=== PATIENT | female | born 1985 | race Caucasian/White ===

== ENCOUNTER 2019-03-28 14:58 | Emergency (ER) | payer OTHER ==
[~2019-03-28] VITALS: Ht 160 cm; Wt 66.7 kg
[2019-03-28] MEDS ORDERED: ADDE20CA3 PO (15:07)
[2019-03-28] MEDS ORDERED: ADDERALL IR (15:07)
[2019-03-28] MEDS ORDERED: bcp (15:07)
[2019-03-28] MEDS ORDERED: ONDANSETRON 4MG/2ML VIAL (J2405) IV ONE (15:30)
[2019-03-28] MEDS ORDERED: GI COCKTAIL 50ML BTL(HYOSCYAMINE/MAALOX/LIDOCAINE VISCOUS)(1:3:1) PO ONE (15:30)
[2019-03-28] MEDS ORDERED: NS 1,000 ML IV ONE (15:30)
[2019-03-28 16:23] LABS: BASO % 1.1 % (0.0-1.0); EOS % 0.4 % (0.0-3.0); HEMATOCRIT 43.4 % (36.0-47.0); HEMOGLOBIN 15.1 g/dl (12.0-15.5); LYMPH # 1.3 10^3/uL (1.5-4.5); LYMPH % 47.3 % (24.0-44.0); MEAN CORPUSCULAR HEMOGLOBIN 34.2 pg (27.0-33.0); MEAN CORPUSCULAR HGB CONC 34.8 g/dl (32.0-36.5); MEAN CORPUSCULAR VOLUME 98.2 fl (80.0-96.0); MONO # 0.4 10^3/uL (0.0-0.8); MONO % 14.8 % (0.0-5.0); NEUTROPHILS % 36.4 % (36.0-66.0); PLATELET COUNT, AUTOMATED 169 10^3/uL (150-450); RED BLOOD COUNT 4.42 10^6/uL (4.00-5.40); WHITE BLOOD COUNT 2.6 10^3/uL (4.0-10.0)
[2019-03-28 16:34] LABS: INR 0.91; PROTHROMBIN TIME 12.3 SECONDS (12.1-14.4)
[2019-03-28 16:35] LABS: PARTIAL THROMBOPLASTIN TIME 26.3 SECONDS (25.4-37.6)
[2019-03-28] MEDS ORDERED: MORPHINE 4 MG/ML 1ML VIAL/SYRINGE (J2270) IV ONE (16:45)
[2019-03-28 17:05] LABS: ALBUMIN 4.7 GM/DL (3.2-5.2); ALT/SGPT 76 U/L (12-78); BILIRUBIN,DIRECT 0.3 MG/DL (0.0-0.2); BILIRUBIN,TOTAL 0.6 MG/DL (0.2-1.0); BLOOD UREA NITROGEN 7 MG/DL (7-18); CALCIUM LEVEL 9.3 MG/DL (8.5-10.1); CARBON DIOXIDE LEVEL 30 MEQ/L (21-32); CHLORIDE LEVEL 98 MEQ/L (98-107); CREATININE FOR GFR 0.84 MG/DL (0.55-1.30); ETHYL ALCOHOL (ETHANOL) 0.452 % (0.000-0.010); GLOMERULAR FILTRATION RATE > 60.0 (>60); GLUCOSE, FASTING 83 MG/DL (70-100); LIPASE 151 U/L (73-393); POTASSIUM SERUM 4.2 MEQ/L (3.5-5.1); SODIUM LEVEL 139 MEQ/L (136-145); TOTAL PROTEIN 9.3 GM/DL (6.4-8.2)
[2019-03-28] MEDS ORDERED: SUCR1SS PO (17:19)
[2019-03-28] MEDS ORDERED: OXAZ15CA4 PO (17:54)
[2019-03-28] MEDS ORDERED: ONDA4TAB6 PO (17:54)
[2019-03-28] MEDS ORDERED: OXAZEPAM 15 MG CAP PO ONE (18:00)
[2019-03-28 18:08] VITALS: BP 141/104
--- NOTE | 2019-03-29 08:40 | REP ---
RIGHT UPPER QUADRANT ULTRASOUND: Real-time sonographic evaluation of the right upper quadrant performed. Gallbladder demonstrates no evidence of intraluminal sludge or calculi, wall thickening, or pericholecystic fluid. There is no intrahepatic or extrahepatic biliary dilatation, common bile duct measuring 4 mm. Liver demonstrates heterogeneous increased echotexture compatible with diffuse fibrofatty infiltration. No gross mass is seen in the liver or pancreas. Pancreas is not optimally seen due to overlying bowel gas. Right kidney demonstrates no hydronephrosis with normal size 9.1 cm in length. No ascites is seen. IMPRESSION: No gallstones, gallbladder wall thickening, free fluid or biliary dilatation. There appears to be diffuse fibrofatty infiltration of the liver. Electronically Signed by Lb Garcia MD 03/29/2019 04:16 P
== END 2019-03-28 18:10 | disposition home or self-care (01) ==
LOC: M ED 14:58
DX: K29.20 Alcoholic gastritis without bleeding (principal); F10.239 Alcohol dependence with withdrawal, unspecified; F90.9 Attention-deficit hyperactivity disorder, unspecified type; K87 Disorders of gallbladder, biliary tract and pancreas in diseases classified elsewhere; Z79.899 Other long term (current) drug therapy; Z88.1 Allergy status to other antibiotic agents; Z88.2 Allergy status to sulfonamides
CPT/HCPCS: 76705; 80048; 80076; 81001; 83690; 84702; 85025; 85610; 85730; 96361; 96374; 96375; 99284; G0480; J2270; J2405

== ENCOUNTER → 2019-10-30 | Outpatient (REF) | payer OTHER ==
[~2019-10-30] MED LIST: ADDE20CA3 PO; ADDERALL IR; ONDA4TAB6 PO; OXAZ15CA4 PO; SUCR1SS PO; bcp
[2019-10-30 20:22] LABS: CHLAMYDIA DNA AMPLIFICATION NEGATIVE (NEGATIVE); GC DNA AMPLIFICATION NEGATIVE (NEGATIVE)
== END ==
LOC: M LAB REF 18:04
PROVIDERS: ATTEND Physician Assistant
DX: R30.0 Dysuria (principal)

== ENCOUNTER 2020-05-20 14:36 | Emergency (ER) | payer OTHER, SELFPAY ==
[2020-05-20] MEDS ORDERED: OXAZEPAM 15 MG CAP ONE (15:00)
[2020-05-20] MEDS ORDERED: OXAZEPAM 15 MG CAP As Ordered ONE (15:04)
[2020-05-20] MEDS ORDERED: ISOVUE-370 76% 100ML VIAL As Ordered ONE (16:44)
[2020-07-25 15:25] LABS: BASO % 0.4 % (0.0-1.0); EOS # 0.1 10^3/uL (0.0-0.5); EOS % 2.8 % (0.0-3.0); HEMATOCRIT 41.6 % (36.0-47.0); HEMOGLOBIN 14.4 g/dl (12.0-15.5); LYMPH # 0.4 10^3/uL (1.5-5.0); LYMPH % 17.5 % (24.0-44.0); MEAN CORPUSCULAR HEMOGLOBIN 34.7 pg (27.0-33.0); MEAN CORPUSCULAR HGB CONC 34.6 g/dl (32.0-36.5); MEAN CORPUSCULAR VOLUME 100.2 fl (80.0-96.0); MONO # 0.3 10^3/uL (0.0-0.8); MONO % 11.4 % (0.0-5.0); NEUTROPHILS # 1.7 10^3/uL (1.5-8.5); NEUTROPHILS % 67.5 % (36.0-66.0); RED BLOOD COUNT 4.15 10^6/uL (4.00-5.40); WHITE BLOOD COUNT 2.5 10^3/uL (4.0-10.0)
[2020-07-25 15:26] LABS: PLATELET COUNT, AUTOMATED 70 10^3/uL (150-450)
[2020-08-08 12:14] LABS: ALBUMIN 4.4 GM/DL (3.2-5.2); ALT/SGPT 55 U/L (12-78); BILIRUBIN,TOTAL 1.8 MG/DL (0.2-1.0); BLOOD UREA NITROGEN 3 MG/DL (7-18); CALCIUM LEVEL 9.8 MG/DL (8.5-10.1); CARBON DIOXIDE LEVEL 28 MEQ/L (21-32); CHLORIDE LEVEL 93 MEQ/L (98-107); CREATININE FOR GFR 0.77 MG/DL (0.55-1.30); ETHYL ALCOHOL (ETHANOL) 0.005 % (0.000-0.010); GLOMERULAR FILTRATION RATE > 60.0 (>60); GLUCOSE, FASTING 96 MG/DL (70-100); POTASSIUM SERUM 3.9 MEQ/L (3.5-5.1); SODIUM LEVEL 130 MEQ/L (136-145); TOTAL PROTEIN 9.2 GM/DL (6.4-8.2)
[2020-08-08 12:23] LABS: HCG, SERUM QUALITATIVE NEGATIVE (NEGATIVE)
== END 2020-05-20 18:23 | disposition home or self-care (01) ==
LOC: M ED 14:36
DX: S30.1XXA Contusion of abdominal wall, initial encounter (principal); V18.2XXA Unspecified pedal cyclist injured in noncollision transport accident in nontraffic accident, initial encounter; F10.129 Alcohol abuse with intoxication, unspecified; K76.0 Fatty (change of) liver, not elsewhere classified; Z88.1 Allergy status to other antibiotic agents; Z88.2 Allergy status to sulfonamides; Z79.899 Other long term (current) drug therapy; Z79.52 Long term (current) use of systemic steroids
CPT/HCPCS: 74177; 80053; 84703; 85025; 85049; 85055; 96360; 99284; G0480; Q9967

== ENCOUNTER 2020-08-06 05:21 | Inpatient (IN) | payer OTHER ==
[~2020-08-06] VITALS: Ht 160 cm; Wt 65.8 kg
[2020-08-06] MEDS ORDERED: CENT1TAB PO (05:42)
[2020-08-06] MEDS ORDERED: MILK140C PO (05:42)
[2020-08-06] MEDS ORDERED: FISH1000 PO (05:42)
[2020-08-06] MEDS ORDERED: PROP40TA62 PO (05:42)
[2020-08-06] MEDS ORDERED: VITATAB73 PO (05:42)
[2020-08-06] MEDS ORDERED: IRON65TA2 PO (05:42)
[2020-08-06] MEDS ORDERED: THIAMINE 100 MG TAB PO SCH (05:56)
[2020-08-06] MEDS ORDERED: LORazepam 2 MG TAB PO PRN (06:00)
[2020-08-06] MEDS ORDERED: NS 1,000 ML IV ONE (06:00)
[2020-08-06 06:06] LABS: HEMATOCRIT 37.3 % (36.0-47.0); HEMOGLOBIN 13.1 g/dl (12.0-15.5); MEAN CORPUSCULAR HEMOGLOBIN 33.7 pg (27.0-33.0); MEAN CORPUSCULAR HGB CONC 35.1 g/dl (32.0-36.5); MEAN CORPUSCULAR VOLUME 95.9 fl (80.0-96.0); RED BLOOD COUNT 3.89 10^6/uL (4.00-5.40); WHITE BLOOD COUNT 2.5 10^3/uL (4.0-10.0)
[2020-08-06] MEDS ORDERED: OXAZEPAM 15 MG CAP PO ONE (06:15)
[2020-08-06 06:31] LABS: PLATELET COUNT, AUTOMATED 65 10^3/uL (150-450)
[2020-08-06 06:31] LABS: HCG, SERUM QUALITATIVE NEGATIVE (NEGATIVE)
[2020-08-06 06:42] LABS: ACETAMINOPHEN LEVEL < 2.0 UG/ML (10.0-30.0); ALBUMIN 3.8 GM/DL (3.2-5.2); ALT/SGPT 161 U/L (12-78); BILIRUBIN,DIRECT 0.2 MG/DL (0.0-0.2); BILIRUBIN,TOTAL 0.5 MG/DL (0.2-1.0); BLOOD UREA NITROGEN 4 MG/DL (7-18); CALCIUM LEVEL 8.9 MG/DL (8.5-10.1); CARBON DIOXIDE LEVEL 27 MEQ/L (21-32); CHLORIDE LEVEL 98 MEQ/L (98-107); CREATININE FOR GFR 0.68 MG/DL (0.55-1.30); ETHYL ALCOHOL (ETHANOL) 0.466 % (0.000-0.010); GLOMERULAR FILTRATION RATE > 60.0 (>60); GLUCOSE, FASTING 101 MG/DL (70-100); LIPASE 254 U/L (73-393); POTASSIUM SERUM 3.9 MEQ/L (3.5-5.1); SALICYLATE LEVEL < 1.7 MG/DL (5.0-30.0); SODIUM LEVEL 137 MEQ/L (136-145); TOTAL PROTEIN 7.9 GM/DL (6.4-8.2)
[2020-08-06] MEDS ORDERED: D5W/0.9% SODIUM CHLORIDE 1,000 ML IV ONE (07:15)
[2020-08-06] MEDS ORDERED: MULTIVITAMIN -ADULT INJECTION 10 ML, THIAMINE INJection 100 MG, FOLIC ACID 1 MG in NS 1... IV ONE (07:15)
[2020-08-06] MEDS ORDERED: LORazepam 2 MG/ML VIAL IV STA (07:33)
[2020-08-06 08:01] LABS: AMPHETAMINES LEVEL URINE NEGATIVE (NEGATIVE); BARBITURATES URINE NEGATIVE (NEGATIVE); BENZODIAZEPINES URINE NEGATIVE (NEGATIVE); CANNABINOIDS URINE NEGATIVE (NEGATIVE); COCAINE METABOLITE URINE NEGATIVE (NEGATIVE); METHADONE URINE NEGATIVE (NEGATIVE); OPIATES URINE NEGATIVE (NEGATIVE); PHENCYCLIDINE URINE NEGATIVE (NEGATIVE)
[2020-08-06] MEDS ORDERED: OLANZapine INTRAMUSCULAR 10MG VIAL IM PRN (08:30)
[2020-08-06] MEDS ORDERED: ADDE20TA PO (08:50)
[2020-08-06] MEDS: LORazepam 2 MG TAB PO PRN ×3 (08:57→22:17)
[2020-08-06] MEDS ORDERED: MULTIVITAMINS/MINERALS THERAP 1 TAB PO SCH (09:00)
[2020-08-06] MEDS ORDERED: FOLIC ACID 1 MG TAB PO SCH (09:00)
--- NOTE | 2020-08-06 09:54 | HPEPDOC ---
General Date of Admission Aug 06, 2020 at 05:22 Date of Service: Aug 06, 2020 Chief Complaint The patient is a 35-year-old female admitted with a reason for visit of Alcohol Withdrawal. Source: Patient, RN/MD History of Present Illness 35 year old female with h/o alcohol use disorder since the age of 24 years has been binge drinking for the past 2 weeks since her came back from training [place] in [place]. She felt she could drink as before however she was feeling sick vomited 2 times, was having diarrhea, was getting confused. She was trying to wean herself off slowly. She drank 8 beers last night then early this morning she was shaking and was hallucinating she felt like she was going into withdrawal. So she came to the ED at the urging of her parents as she has h/o alcohol withdrawal seizures. Before this she did not drink for 3 months. In ED her alcohol level was 0.466 on arrival. She was started on hydration. About 3 hours later it was noted that she was getting tachycardic and was having mild hallucinations she was given a dose of serax and then need ativan IV. Patient was admitted for alcohol withdrawal. Home Medications Scheduled Dextroamphetamine/Amphetamine (Adderall Xr 20 mg Capsule) 20 Mg Cap.er.24h, 20 MG PO DAILY, (Reported) Ferrous Sulfate (Iron) 325 Mg Tablet, 325 MG PO DAILY, (Reported) Milk Thistle Seed Extract (Milk Thistle) 140 Mg Capsule, 140 MG PO DAILY, (Reported) Multivit-Min/FA/Lycopen/Lutein (Centrum Silver Tablet) 1 Each Tablet, 1 TAB PO DAILY, (Reported) Harrell-3 Fatty Acids/Fish Oil (Fish Oil 1,000 mg Capsule) 1 Each Capsule, 1,000 MG PO DAILY, (Reported) Propranolol HCl (Propranolol HCl) 40 Mg Tablet, 40 MG PO BID, (Reported) Vitamin B Complex (Vitamin B Complex) 1 Each Tablet, 1 TAB PO DAILY, (Reported) Scheduled PRN Dextroamphetamine/Amphetamine (Adderall 20 mg Tablet) 20 Mg Tablet, 10 MG PO DAILY PRN for A.D.D. SYMPTOMS, (Reported) Allergies Coded Allergies: Sulfa (Sulfonamide Antibiotics) (Verified Allergy, Unknown, 08/06/20) ciprofloxacin (Verified Allergy, Unknown, 08/06/20) Past Medical History Medical History alcohol abuse Surgical History wisdom tooth removal Family History Significant Family History: Diabetes (maternal grandmother), Hypertension (mother) Social History * Smoker: Denies Alcohol: heavy Drugs: denies A-FIB/CHADSVASC A-FIB History Current/History of A-Fib/PAF?: No Review of Systems Constitutional: Denies: Chills, Fever, Night Sweats Eyes: Reports: Eyelid inflammation; Denies: Pain, Vision change ENT: Denies: Head Aches, Ear Pain, Dysphagia Skin: Denies: Rash, Lesions, Breakdown Pulmonary: Denies: Dyspnea, Cough Cardiovascular: Denies: Chest Pain, Palpitations, Orthopnea Gastrointestinal: Reports: Vomiting, Other Symptoms (stool incontinence during urination) Genitourinary: Denies: Dysuria, Frequency, Incontinence Hematologic: Denies: Bruising, Bleeding Excessively Neurological: Denies: Weakness, Numbness, Change in speech, Confusion Physical Examination General Exam: Positive: Alert, Cooperative, No Acute Distress Eye Exam: Positive: PERRLA, EOMI, Other Eye Symptoms (inner part of right eyelid inflamed); Negative: Sclera icteric ENT Exam: Positive: Atraumatic, Mucous membr. moist/pink, Pharynx Normal Neck Exam: Positive: Supple; Negative: JVD, thyromegaly Chest Exam: Positive: Clear to auscultation, Normal air movement Heart Exam: Positive: Tachycardic, Regular Rhythm, Normal S1, Normal S2; Negative: Murmurs, Rubs Telemetry: Positive: No significant arrhythmia Abdomen Exam: Positive: Normal bowel sounds, Soft; Negative: Tenderness, Hepatospenomegaly Extremity Exam: Positive: Normal pulses; Negative: Clubbing, Cyanosis, Edema Psych Exam: Positive: Memory Intact, Oriented x 3 Vital Signs Vital Signs Date Time Temp Pulse Resp B/P (MAP) Pulse Ox O2 Delivery O2 Flow Rate FiO2 08/06/20 08:49 110 124/78 08/06/20 08:01 20 94 Room Air 08/06/20 05:36 98.3 Laboratory Data Labs 24H Laboratory Tests 2 08/06/20 05:37: Anion Gap 12, Glomerular Filtration Rate > 60.0, Calcium Level 8.9, Total Bilir ubin 0.5, Direct Bilirubin 0.2, Aspartate Amino Transf (AST/SGOT) 324H, Alanine Aminotransferase (ALT/SGPT) 161H, Alkaline Phosphatase 118H, Total Protein 7.9, Albumin 3.8, Albumin/Globulin Ratio 0.9L, Lipase 254, Thyroid Stimulating Hormone (TSH) 3.130, Human Chorionic Gonadotropin, Qual NEGATIVE, Salicylates Level < 1.7L, Acetaminophen Level < 2.0L, Ethyl Alcohol Level 0.466H 08/06/20 05:48: Nucleated Red Blood Cells % (auto) 0.0, Immature Platelet Fraction 8.5 08/06/20 07:27: Urine Opiates Screen NEGATIVE, Urine Methadone Screen NEGATIVE, Urine Ba rbiturates Screen NEGATIVE, Urine Phencyclidine Screen NEGATIVE, Urine Amphetamines Screen NEGATIVE, Urine Benzodiazepines Screen NEGATIVE, Urine Cocaine Metabolite Screen NEGATIVE, Urine Cannabinoids Screen NEGATIVE CBC/BMP Laboratory Tests 08/06/20 05:37 08/06/20 05:48 Assessment/Plan 35 year old female with h/o alcohol use disorder since the age of 24 years has been binge drinking for the past 2 weeks since her came back from training [place] in [place]. She felt she could drink as before however she was feeling sick vomited 2 times, was having diarrhea, was getting confused. She was trying to wean herself off slowly. She drank 8 beers last night then early this morning she was shaking and was hallucinating she felt like she was going into withdrawal. So she came to the ED at the urging of her parents as she has h/o alcohol withdrawal seizures. Before this she did not drink for 3 months. In ED her alcohol level was 0.466 on arrival. She was started on hydration. About 3 hours later it was noted that she was getting tachycardic and was having mild hallucinations she was given a dose of serax and then need ativan IV. Patient was admitted for alcohol withdrawal. Alcohol withdrawal will give olanzepine prn, ativan IV prn CIWA protocol IVF. Transaminitis due to alcoholic hepatitis will monitor Thrombocytopenia Probably bone marrow suppression from alcohol I do not think she has developed cirrhosis yet. She does show fatty in filtration. Plan / VTE VTE Prophylaxis Ordered?: Yes SERGEI SPARKS MD Aug 06, 2020 09:54
[2020-08-06] MEDS: LORazepam 2 MG/ML VIAL IV PRN (10:29)
[2020-08-06 11:00] VITALS: BP 117/72
[2020-08-06] MEDS: OXAZEPAM 15 MG CAP PO SCH ×2 (12:16→18:08)
[2020-08-06 14:00] VITALS: BP 120/76
[2020-08-06 16:00] VITALS: BP 108/74
--- NOTE | 2020-08-06 16:12 | ECGEPIP ---
[facility] - ED Test Date: 2020-08-06 Pat Name: JORDANA UNDERWOOD Department: Room: [place] [address] Gender: Female Body Technician/Painter: carl thompson : 1985 Requested By: Erica Ruiz Order Number: [id number] Reading MD: Erica Ruiz Measurements Intervals [place] Rate: 104 P: 44 NE: 159 QRS: 27 QRSD: 88 T: 10 QT: 353 QTc: 466 Interpretive Statements SINUS TACHYCARDIA SEPTAL MYOCARDIAL INFARCTION, OF INDETERMINATE AGE NONSPECIFIC ST T WAVE CHANGES PROLONGED QTC NO PRIOR ECG FOR COMPARISON Electronically Signed on 08-06-2020 16:12:10 EDT by Erica Ruiz
[2020-08-06] MEDS: NS 1,000 ML IV SCH (18:09)
[2020-08-06 18:10] VITALS: BP 119/76
[2020-08-06 20:00] VITALS: BP 121/81
[2020-08-06 22:00] VITALS: BP 132/86
[2020-08-06] MEDS: THIAMINE 100 MG TAB PO SCH (22:09)
[2020-08-07] VITALS (13 sets, daily range): BP systolic 122–156; BP diastolic 62–100
[2020-08-07] MEDS: OXAZEPAM 15 MG CAP PO SCH ×5 (00:35→23:39)
[2020-08-07] MEDS: LORazepam 2 MG TAB PO PRN ×6 (00:51→21:04)
[2020-08-07] MEDS: NS 1,000 ML IV SCH (04:13)
[2020-08-07 05:18] LABS: HEMOGLOBIN 12.1 g/dl (12.0-15.5); MEAN CORPUSCULAR HEMOGLOBIN 33.4 pg (27.0-33.0); MEAN CORPUSCULAR HGB CONC 33.6 g/dl (32.0-36.5); MEAN CORPUSCULAR VOLUME 99.4 fl (80.0-96.0); RED BLOOD COUNT 3.62 10^6/uL (4.00-5.40); WHITE BLOOD COUNT 1.9 10^3/uL (4.0-10.0)
[2020-08-07 05:19] LABS: PLATELET COUNT, AUTOMATED 55 10^3/uL (150-450)
[2020-08-07 05:51] LABS: ALBUMIN 3.1 GM/DL (3.2-5.2); ALT/SGPT 116 U/L (12-78); BILIRUBIN,TOTAL 0.8 MG/DL (0.2-1.0); BLOOD UREA NITROGEN 3 MG/DL (7-18); CALCIUM LEVEL 8.3 MG/DL (8.5-10.1); CARBON DIOXIDE LEVEL 26 MEQ/L (21-32); CHLORIDE LEVEL 105 MEQ/L (98-107); CREATININE FOR GFR 0.53 MG/DL (0.55-1.30); GLOMERULAR FILTRATION RATE > 60.0 (>60); GLUCOSE, FASTING 86 MG/DL (70-100); MAGNESIUM LEVEL 1.4 MG/DL (1.8-2.4); PHOSPHORUS LEVEL 2.8 MG/DL (2.5-4.9); SODIUM LEVEL 138 MEQ/L (136-145); TOTAL PROTEIN 6.5 GM/DL (6.4-8.2)
[2020-08-07 05:52] LABS: ETHYL ALCOHOL (ETHANOL) < 0.003 % (0.000-0.010)
[2020-08-07] MEDS ORDERED: INFLUENZA QUADRIVALENT PF VACCINE 0.5ML SYRINGE IM ONE (09:00)
[2020-08-07] MEDS: FOLIC ACID 1 MG TAB PO SCH (09:04)
[2020-08-07] MEDS: THIAMINE 100 MG TAB PO SCH ×2 (09:04→21:04)
[2020-08-07] MEDS: MULTIVITAMINS/MINERALS THERAP 1 TAB PO SCH (09:04)
[2020-08-07] MEDS: MAG SULF 1GM/100ML (MAG RUN) 1 GM in IV 1 EA IV SCH ×2 (09:05→10:14)
--- NOTE | 2020-08-07 10:45 | IPNPDOC ---
Text Note Date of Service The patient was seen on 08/07/20. NOTE Subjective: somnolent but easily arousable. No signs of withdrawal. Physical Exam: Vitals: As below General Exam: Positive: Alert, Cooperative, No Acute Distress Eye Exam: Positive: PERRLA, EOMI, Other Eye Symptoms (inner part of right eyelid inflamed); Negative: Sclera icteric ENT Exam: Positive: Atraumatic, Mucous membr. moist/pink, Pharynx Normal Neck Exam: Positive: Supple; Negative: JVD, thyromegaly Chest Exam: Positive: Clear to auscultation, Normal air movement Heart Exam: Positive: Tachycardic, Regular Rhythm, Normal S1, Normal S2; Negative: Murmurs, Rubs Telemetry: Positive: No significant arrhythmia Abdomen Exam: Positive: Normal bowel sounds, Soft; Negative: Tenderness, Hepatosplenomegaly Extremity Exam: Positive: Normal pulses; Negative: Clubbing, Cyanosis, Edema Psych Exam: Positive: Memory Intact, Oriented x 3 Labs and Radiology: reviewed Assessment and Plan: 35 year old female with h/o alcohol use disorder since the age of 24 years has been binge drinking for the past 2 weeks since her came back from training [place] in [place]. She felt she could drink as before however she was feeling sick vomited 2 times, was having diarrhea, was getting confused. She was trying to wean herself off slowly. She drank 8 beers last night then early this morning she was shaking and was hallucinating she felt like she was going into withdrawal. So she came to the ED at the urging of her parents as she has h/o alcohol withdrawal seizures. Before this she did not drink for 3 months. In ED her alcohol level was 0.466 on arrival. She was started on hydration. About 3 hours later it was noted that she was getting tachycardic and was having mild hallucinations she was given a dose of serax and then need ativan IV. Patient was admitted for alcohol withdrawal. Alcohol withdrawal will give olanzepine prn, ativan IV prn Continue Serax QID CIAR protocol IVF. Transaminitis due to alcoholic hepatitis will monitor Hypomagnesemia replaced Thrombocytopenia Probably bone marrow suppression from alcohol I do not think she has developed cirrhosis yet. She does show fatty infiltration. Leucopenia due to alcohol related bone marrow suppression. VS,Fishbone, I+O VS, Fishbone, I+O Laboratory Tests 08/07/20 05:05 Vital Signs Date Time Temp Pulse Resp B/P (MAP) Pulse Ox O2 Delivery O2 Flow Rate FiO2 08/07/20 06:00 92 129/94 (106) 08/07/20 04:00 98.3 17 96 Room Air I&O- Last 24 Hours up to 6 AM 08/07/20 06:00 Intake Total 4591.2 ml Output Total 1700 ml Balance 2891.2 ml SERGEI SPARKS MD Aug 07, 2020 08:20
[2020-08-07] MEDS ORDERED: SLF 3 ML SYR IV PRN (11:15)
[2020-08-07] MEDS: SLF 3 ML SYR IV SCH ×2 (14:33→21:05)
[2020-08-08] VITALS (12 sets, daily range): BP systolic 128–156; BP diastolic 92–102
[2020-08-08] MEDS: LORazepam 2 MG/ML VIAL IV PRN (02:54)
[2020-08-08] MEDS ORDERED: ONDANSETRON 4 MG ORAL DISINTEGRATING TAB PO PRN (03:15)
[2020-08-08] MEDS: ONDANSETRON 4MG/2ML VIAL IV PRN ×2 (03:26→21:33)
[2020-08-08] MEDS: LORazepam 2 MG TAB PO PRN ×3 (03:58→13:27)
[2020-08-08 05:34] LABS: BASO % 0.5 % (0.0-1.0); HEMATOCRIT 37.3 % (36.0-47.0); HEMOGLOBIN 12.5 g/dl (12.0-15.5); LYMPH # 0.5 10^3/uL (1.5-5.0); LYMPH % 26.4 % (24.0-44.0); MEAN CORPUSCULAR HEMOGLOBIN 33.3 pg (27.0-33.0); MEAN CORPUSCULAR HGB CONC 33.5 g/dl (32.0-36.5); MEAN CORPUSCULAR VOLUME 99.5 fl (80.0-96.0); MONO # 0.3 10^3/uL (0.0-0.8); MONO % 15.2 % (0.0-5.0); NEUTROPHILS # 1.1 10^3/uL (1.5-8.5); NEUTROPHILS % 55.9 % (36.0-66.0); RED BLOOD COUNT 3.75 10^6/uL (4.00-5.40)
[2020-08-08 05:38] LABS: PLATELET COUNT, AUTOMATED 71 10^3/uL (150-450)
[2020-08-08 05:52] LABS: ALBUMIN 3.3 GM/DL (3.2-5.2); ALT/SGPT 94 U/L (12-78); BILIRUBIN,TOTAL 0.8 MG/DL (0.2-1.0); BLOOD UREA NITROGEN 3 MG/DL (7-18); CALCIUM LEVEL 8.8 MG/DL (8.5-10.1); CARBON DIOXIDE LEVEL 25 MEQ/L (21-32); CHLORIDE LEVEL 104 MEQ/L (98-107); GLOMERULAR FILTRATION RATE > 60.0 (>60); GLUCOSE, FASTING 122 MG/DL (70-100); MAGNESIUM LEVEL 1.8 MG/DL (1.8-2.4); PHOSPHORUS LEVEL 2.8 MG/DL (2.5-4.9); POTASSIUM SERUM 3.7 MEQ/L (3.5-5.1); SODIUM LEVEL 138 MEQ/L (136-145); TOTAL PROTEIN 7.3 GM/DL (6.4-8.2)
[2020-08-08] MEDS: OXAZEPAM 15 MG CAP PO SCH ×3 (05:55→21:35)
[2020-08-08] MEDS: SLF 3 ML SYR IV SCH ×3 (05:58→21:36)
[2020-08-08] MEDS: MULTIVITAMINS/MINERALS THERAP 1 TAB PO SCH (08:12)
[2020-08-08] MEDS: THIAMINE 100 MG TAB PO SCH ×2 (08:12→21:36)
[2020-08-08] MEDS: FOLIC ACID 1 MG TAB PO SCH (08:12)
--- NOTE | 2020-08-08 11:14 | IPNPDOC ---
Text Note Date of Service The patient was seen on 08/08/20. NOTE Subjective: Patient did not have a good night. She was awake all night as per nurses, was tachycardiac and tremulous requiring 3 doses of ativan, jeffry creported that she had 2 loose bowel movements and one of them she could not control and also had vomiting twice. No appetite this morning. She today complains of right lower back of the chest pain and dysuria. She reports she had similar symptoms when she had a UTI before. More settled this am, no tachycardia, no tremors noted. Physical Exam: Vitals: As below General Exam: Positive: Alert, Cooperative, No Acute Distress Eye Exam: Positive: PERRLA, EOMI, Negative: Sclera icteric ENT Exam: Positive: Atraumatic, Mucous membr. moist/pink, Pharynx Normal Neck Exam: Positive: Supple; Negative: JVD, thyromegaly Chest Exam: Positive: Clear to auscultation, Normal air movement Heart Exam: Positive: Tachycardic, Regular Rhythm, Normal S1, Normal S2; Negative: Murmurs, Rubs Telemetry: Positive: No significant arrhythmia Abdomen Exam: Positive: Normal bowel sounds, Soft; Negative: Tenderness, Hepatosplenomegaly Extremity Exam: Positive: Normal pulses; Negative: Clubbing, Cyanosis, Edema Psych Exam: Positive: Memory Intact, Oriented x 3 Labs and Radiology: reviewed Assessment and Plan: 35 year old female with h/o alcohol use disorder since the age of 24 years has been binge drinking for the past 2 weeks since her came back from training [place] in [place]. She felt she could drink as before however she was feeling sick vomited 2 times, was having diarrhea, was getting confused. She was trying to wean herself off slowly. She drank 8 beers last night then early this morning she was shaking and was hallucinating she felt like she was going into withdrawal. So she came to the ED at the urging of her parents as she has h/o alcohol withdrawal seizures. Before this she did not drin k for 3 months. In ED her alcohol level was 0.466 on arrival. She was started on hydration. About 3 hours later it was noted that she was getting tachycardic and was having mild hallucinations she was given a dose of serax and then need ativan IV. Patient was admitted for alcohol withdrawal. Alcohol withdrawal will give olanzepine prn, ativan IV prn Continue Serax QID CIWA protocol Zofran prn. Transaminitis due to alcoholic hepatitis improving Hypomagnesemia replaced Thrombocytopenia Probably bone marrow suppression from alcohol improving I do not think she has developed cirrhosis yet. She does show fatty infiltration. Leucopenia due to alcohol related bone marrow suppression. will monitor Dysuria will get UA VS,Fishbone, I+O VS, Fishbone, I+O Laboratory Tests 08/08/20 05:13 Vital Signs Date Time Temp Pulse Resp B/P (MAP) Pulse Ox O2 Delivery O2 Flow Rate FiO2 08/08/20 08:00 97.8 103 18 140/100 (113) 97 Room Air I&O- Last 24 Hours up to 6 AM 08/08/20 05:59 Intake Total 2000 ml Output Total 3200 ml Balance -1200 ml SERGEI SPARKS MD Aug 08, 2020 11:14
[2020-08-08] MEDS: OLANZapine 5 MG TAB PO SCH (21:34)
[2020-08-09] VITALS (8 sets, daily range): BP systolic 117–156; BP diastolic 77–100
[2020-08-09] MEDS: OXAZEPAM 15 MG CAP PO SCH ×2 (05:18→20:46)
[2020-08-09] MEDS: SLF 3 ML SYR IV SCH ×3 (05:18→20:47)
[2020-08-09 06:20] LABS: BASO % 0.4 % (0.0-1.0); EOS # 0.1 10^3/uL (0.0-0.5); EOS % 2.1 % (0.0-3.0); HEMATOCRIT 40.8 % (36.0-47.0); HEMOGLOBIN 13.4 g/dl (12.0-15.5); LYMPH # 0.8 10^3/uL (1.5-5.0); LYMPH % 33.5 % (24.0-44.0); MEAN CORPUSCULAR HEMOGLOBIN 33.2 pg (27.0-33.0); MEAN CORPUSCULAR HGB CONC 32.8 g/dl (32.0-36.5); MONO # 0.4 10^3/uL (0.0-0.8); MONO % 16.9 % (0.0-5.0); NEUTROPHILS # 1.1 10^3/uL (1.5-8.5); NEUTROPHILS % 46.7 % (36.0-66.0); RED BLOOD COUNT 4.04 10^6/uL (4.00-5.40); WHITE BLOOD COUNT 2.4 10^3/uL (4.0-10.0)
[2020-08-09 06:22] LABS: PLATELET COUNT, AUTOMATED 96 10^3/uL (150-450)
[2020-08-09 06:45] LABS: ALBUMIN 3.7 GM/DL (3.2-5.2); ALT/SGPT 84 U/L (12-78); BILIRUBIN,TOTAL 0.9 MG/DL (0.2-1.0); BLOOD UREA NITROGEN 3 MG/DL (7-18); CALCIUM LEVEL 9.3 MG/DL (8.5-10.1); CARBON DIOXIDE LEVEL 29 MEQ/L (21-32); CHLORIDE LEVEL 102 MEQ/L (98-107); GLOMERULAR FILTRATION RATE > 60.0 (>60); GLUCOSE, FASTING 76 MG/DL (70-100); MAGNESIUM LEVEL 1.7 MG/DL (1.8-2.4); POTASSIUM SERUM 3.5 MEQ/L (3.5-5.1); SODIUM LEVEL 139 MEQ/L (136-145); TOTAL PROTEIN 7.6 GM/DL (6.4-8.2)
[2020-08-09] MEDS ORDERED: MAG SULF 1GM/100ML (MAG RUN) 1 GM in IV 1 EA IV ONE (08:00)
[2020-08-09] MEDS: FOLIC ACID 1 MG TAB PO SCH (08:27)
[2020-08-09] MEDS: MULTIVITAMINS/MINERALS THERAP 1 TAB PO SCH (08:27)
[2020-08-09] MEDS: THIAMINE 100 MG TAB PO SCH (08:27)
--- NOTE | 2020-08-09 11:11 | IPNPDOC ---
Text Note Date of Service The patient was seen on 08/09/20. NOTE Subjective: Feeling good today, slept well last night, no signs of withdrawal this am. No nausea or vomiting. Physical Exam: Vitals: As below General Exam: Positive: Alert, Cooperative, No Acute Distress Eye Exam: Positive: PERRLA, EOMI, Negative: Sclera icteric ENT Exam: Positive: Atraumatic, Mucous membr. moist/pink, Pharynx Normal Neck Exam: Positive: Supple; Negative: JVD, thyromegaly Chest Exam: Positive: Clear to auscultation, Normal air movement Heart Exam: Positive: Tachycardic, Regular Rhythm, Normal S1, Normal S2; Negative: Murmurs, Rubs Telemetry: Positive: No significant arrhythmia Abdomen Exam: Positive: Normal bowel sounds, Soft; Negative: Tenderness, Hepatosplenomegaly Extremity Exam: Positive: Normal pulses; Negative: Clubbing, Cyanosis, Edema Psych Exam: Positive: Memory Intact, Oriented x 3 Labs and Radiology: reviewed Assessment and Plan: 35 year old female with h/o alcohol use disorder since the age of 24 years has been binge drinking for the past 2 weeks since her came back from training [employer] in [place]. She felt she could drink as before however she was feeling sick vomited 2 times, was having diarrhea, was getting confused. She was trying to wean herself off slowly. She drank 8 beers last night then early this morning she was shaking and was hallucinating she felt like she was going into withdrawal. So she came to the ED at the urging of her parents as she has h/o alcohol withdrawal seizures. Before this she did not drink for 3 months. In ED her alcohol level was 0.466 on arrival. She was started on hydration. About 3 hours later it was noted that she was getting tachycardic and was having mild hallucinations she was given a dose of serax and then need ativan IV. Patient was admitted for alcohol withdrawal. Alcohol withdrawal will give olanzepine prn, ativan IV prn Continue Serax now being weaned. [facility] protocol Zofran prn. Transaminitis due to alcoholic hepatitis improving Hypomagnesemia replaced Thrombocytopenia Probably bone marrow suppression from alcohol improving She does show fatty infiltration. Leucopenia due to alcohol related bone marrow suppression. will monitor Dysuria resolved UA negative DVT prophylaxis in place. VS,Fishbone, I+O VS, Fishbone, I+O Laboratory Tests 08/09/20 06:00 Vital Signs Date Time Temp Pulse Resp B/P (MAP) Pulse Ox O2 Delivery O2 Flow Rate FiO2 08/09/20 08:00 96.5 90 18 138/92 (107) 100 Room Air I&O- Last 24 Hours up to 6 AM 08/09/20 06:00 Intake Total 4000 ml Output Total 6550 ml Balance -2550 ml SERGEI SPARKS MD Aug 09, 2020 11:11
[2020-08-09] MEDS: ONDANSETRON 4MG/2ML VIAL IV PRN (15:20)
[2020-08-09] MEDS: OLANZapine 5 MG TAB PO SCH (20:46)
[2020-08-10] VITALS: BP 125/78
[2020-08-10 04:00] VITALS: BP 142/96
[2020-08-10] MEDS: SLF 3 ML SYR IV SCH ×2 (04:36→14:13)
[2020-08-10 05:07] LABS: BASO % 0.7 % (0.0-1.0); EOS # 0.1 10^3/uL (0.0-0.5); EOS % 2.1 % (0.0-3.0); HEMATOCRIT 40.7 % (36.0-47.0); HEMOGLOBIN 13.7 g/dl (12.0-15.5); LYMPH % 33.4 % (24.0-44.0); MEAN CORPUSCULAR HEMOGLOBIN 34.3 pg (27.0-33.0); MEAN CORPUSCULAR HGB CONC 33.7 g/dl (32.0-36.5); MONO # 0.6 10^3/uL (0.0-0.8); MONO % 21.3 % (0.0-5.0); NEUTROPHILS # 1.2 10^3/uL (1.5-8.5); NEUTROPHILS % 42.2 % (36.0-66.0); PLATELET COUNT, AUTOMATED 124 10^3/uL (150-450); RED BLOOD COUNT 3.99 10^6/uL (4.00-5.40); WHITE BLOOD COUNT 2.9 10^3/uL (4.0-10.0)
[2020-08-10 05:24] LABS: ALBUMIN 3.4 GM/DL (3.2-5.2); ALT/SGPT 64 U/L (12-78); BILIRUBIN,TOTAL 0.7 MG/DL (0.2-1.0); BLOOD UREA NITROGEN 4 MG/DL (7-18); CALCIUM LEVEL 9.4 MG/DL (8.5-10.1); CARBON DIOXIDE LEVEL 26 MEQ/L (21-32); CHLORIDE LEVEL 107 MEQ/L (98-107); CREATININE FOR GFR 0.59 MG/DL (0.55-1.30); GLOMERULAR FILTRATION RATE > 60.0 (>60); GLUCOSE, FASTING 102 MG/DL (70-100); MAGNESIUM LEVEL 1.7 MG/DL (1.8-2.4); PHOSPHORUS LEVEL 3.5 MG/DL (2.5-4.9); POTASSIUM SERUM 3.7 MEQ/L (3.5-5.1); SODIUM LEVEL 137 MEQ/L (136-145); TOTAL PROTEIN 7.8 GM/DL (6.4-8.2)
[2020-08-10 06:00] VITALS: BP 142/96
[2020-08-10 08:00] VITALS: BP 151/96
[2020-08-10] MEDS: MAG SULF 1GM/100ML (MAG RUN) 1 GM in IV 1 EA IV SCH ×2 (09:40→10:48)
[2020-08-10] MEDS: MULTIVITAMINS/MINERALS THERAP 1 TAB PO SCH (09:41)
[2020-08-10] MEDS: FOLIC ACID 1 MG TAB PO SCH (09:41)
[2020-08-10] MEDS: OXAZEPAM 15 MG CAP PO SCH (09:41)
[2020-08-10] MEDS ORDERED: ADDE20CA3 PO (10:00)
[2020-08-10] MEDS ORDERED: OXAZ10CA3 PO (10:00)
[2020-08-10] MEDS ORDERED: ADDE20TA PO (10:00)
[2020-08-10] MEDS ORDERED: FOLI1TAB11 PO (10:00)
--- NOTE | 2020-08-10 11:26 | DS.PDOC ---
Discharge Summary General Date of Admission Aug 08, 2020 at 10:04 Date of Discharge 08/10/20 Discharge Summary PROCEDURES PERFORMED DURING STAY: [None]. DISCHARGE DIAGNOSES: Alcohol intoxication with Alcohol withdrawal Alcoholic hepatitis Thrombocytopenia Leucopenia Hypomagnesemia SECONDARY DIAGNOSIS: ADHD, Hypertension, Anxiety COMPLICATIONS/CHIEF COMPLAINT: Alcohol Withdrawal. HOSPITAL COURSE: 35 year old female with h/o alcohol use disorder since the age of 24 years has been binge drinking for the past 2 weeks since her came back from training [employer] in [place]. She felt she could drink as before however she was feeling sick vomited 2 times, was having diarrhea, was getting confused . She was trying to wean herself off slowly. She drank 8 beers last night then early this morning she was shaking and was hallucinating she felt like she was going into withdrawal. So she came to the ED at the urging of her parents as she has h/o alcohol withdrawal seizures. Before this she did not drink for 3 months. In ED her alcohol level was 0.466 on arrival. She was started on hydration. Abo ut 3 hours later it was noted that she was getting tachycardic and was having mild hallucinations she was given a dose of serax and then need ativan IV. Patient was admitted for alcohol withdrawal. Alcohol withdrawal will give olanzepine prn, ativan IV prn Continue Serax now being weaned. [facility] protocol Zofran prn. Transaminitis due to alcoholic hepatitis improving Hypomagnesemia replaced Thrombocytopenia Probably bone marrow suppression from alcohol improving She does show fatty infiltration. Leucopenia due to alcohol related bone marrow suppression. will monitor ADHD patient instructed not to take her Adderall while she is on Serax. Hypertension on propranolol DVT prophylaxis in place. DISCHARGE MEDICATIONS: Please see below. ALLERGIES: Please see below. PHYSICAL EXAMINATION ON DISCHARGE: VITAL SIGNS: Please see below. General Exam: Positive: Alert, Cooperative, No Acute Distress Eye Exam: Positive: PERRLA, EOMI, Negative: Sclera icteric ENT Exam: Positive: Atraumatic, Mucous membr. moist/pink, Pharynx Normal Neck Exam: Positive: Supple; Negative: JVD, thyromegaly Chest Exam: Positive: Clear to auscultation, Normal air movement Heart Exam: Positive: Tachycardic, Regular Rhythm, Normal S1, Normal S2; Negative: Murmurs, Rubs Telemetry: Positive: No significant arrhythmia Abdomen Exam: Positive: Normal bowel sounds, Soft; Negative: Tenderness, Hepatosplenomegaly Extremity Exam: Positive: Normal pulses; Negative: Clubbing, Cyanosis, Edema Psych Exam: Positive: Memory Intact, Oriented x 3 LABORATORY DATA: Please see below. ACTIVITY: [As tolerated]. DIET: Regular DISPOSITION: Home DISCHARGE INSTRUCTIONS: Follow up PMD in 1 to 2 weeks DISCHARGE CONDITION: [Stable]. TIME SPENT ON DISCHARGE: 35 minutes. Vital Signs/I&Os Vital Signs Date Time Temp Pulse Resp B/P (MAP) Pulse Ox O2 Delivery O2 Flow Rate FiO2 08/10/20 08:00 98.2 95 18 151/96 (114) 100 Room Air I&O- Last 24 Hours up to 6 AM 08/10/20 06:00 Intake Total 2630 ml Output Total 5250 ml Balance -2620 ml Laboratory Data Labs 24H Laboratory Tests 2 08/10/20 04:49: Immature Granulocyte % (Auto) 0.3, Neutrophils (%) (Auto) 42.2, Lymphocytes (%) (Auto) 33.4, Monocytes (%) (Auto) 21.3H, Eosinophils (%) (Auto) 2.1, Basophils ( %) (Auto) 0.7, Neutrophils # (Auto) 1.2L, Lymphocytes # (Auto) 1.0L, Monocytes # (Auto) 0.6, Eosinophils # (Auto) 0.1, Basophils # (Auto) 0.0, Nucleated Red Blood Cells % (auto) 0.0, Anion Gap 4L, Glomerular Filtration Rate > 60.0, Calcium Level 9.4, Phosphorus Level 3.5, Magnesium Level 1.7L, Total Bilirubin 0.7, Aspartate Amino Transf (AST/SGOT) 45H, Alanine Aminotransferase (ALT/SGPT) 64, Alkaline Phosphatase 124H, Total Protein 7.8, Albumin 3.4, Albumin/Globulin Ratio 0.8L CBC/BMP Laboratory Tests 08/10/20 04:49 Microbiology Microbiology 08/08/20 Urine Culture - Final, Complete Klebsiella Pneumoniae Discharge Medications Scheduled Dextroamphetamine/Amphetamine (Adderall Xr 20 mg Capsule) 20 Mg Cap.er.24h, 20 MG PO DAILY Donot take this while taking Serax Ferrous Sulfate (Iron) 325 Mg Tablet, 325 MG PO DAILY, (Reported) Folic Acid (Folic Acid) 1 Mg Tablet, 1 MG PO DAILY Milk Thistle Seed Extract (Milk Thistle) 140 Mg Capsule, 140 MG PO DAILY, (Reported) Multivit-Min/FA/Lycopen/Lutein (Centrum Silver Tablet) 1 Each Tablet, 1 TAB PO DAILY, (Reported) Eunice-3 Fatty Acids/Fish Oil (Fish Oil 1,000 mg Capsule) 1 Each Capsule, 1,000 MG PO DAILY, (Reported) Oxazepam (Oxazepam) 10 Mg Capsule, 1 CAP PO ASDIRECTED 1 cap tonight, 1 cap thrice on 08/11/20, 1 cap twice on 08/12/20 then 1 cap once on 08/13/20 Propranolol HCl (Propranolol HCl) 40 Mg Tablet, 40 MG PO BID, (Reported) Vitamin B Complex (Vitamin B Complex) 1 Each Tablet, 1 TAB PO DAILY, (Reported) Scheduled PRN Dextroamphetamine/Amphetamine (Adderall 20 mg Tablet) 20 Mg Tablet, 10 MG PO DAILY PRN for A.D.D. SYMPTOMS Do not take this while taking serax Allergies Coded Allergies: Sulfa (Sulfonamide Antibiotics) (Verified Allergy, Unknown, 08/06/20) ciprofloxacin (Verified Allergy, Unknown, 08/06/20) SERGEI SPARKS MD Aug 10, 2020 11:26
[2020-08-10 12:00] VITALS: BP 124/74
== END 2020-08-10 17:34 | disposition home or self-care (01) | DRG 433 ==
LOC: M ED 05:21 → M ED INP 05:22 → ENRESERV 08:29 → M PCU 11:03 → OBSVTOIN 08-08 10:04
PROVIDERS: ADMIT Internal Medicine Nephrology; ATTEND Internal Medicine Nephrology
DX: K70.10 Alcoholic hepatitis without ascites (principal); F10.239 Alcohol dependence with withdrawal, unspecified; D69.6 Thrombocytopenia, unspecified; E83.42 Hypomagnesemia; F90.9 Attention-deficit hyperactivity disorder, unspecified type; Z79.899 Other long term (current) drug therapy; Z88.2 Allergy status to sulfonamides; Z88.8 Allergy status to other drugs, medicaments and biological substances

== ENCOUNTER 2021-01-28 11:58 | Observation (INO) | payer OTHER ==
[~2021-01-28] VITALS: Ht 160 cm; Wt 64.0 kg
[~2021-01-28 11:58] MED LIST changes: +ADDE20TA PO; +CENT1TAB PO; +FISH1000 PO; +FOLI1TAB11 PO; +IRON65TA2 PO; +MILK140C PO; +OXAZ10CA3 PO; +PROP40TA62 PO; +VITATAB73 PO
[2021-01-28 13:00] LABS: HEMATOCRIT 44.9 % (36.0-47.0); HEMOGLOBIN 15.6 g/dl (12.0-15.5); MEAN CORPUSCULAR HEMOGLOBIN 34.1 pg (27.0-33.0); MEAN CORPUSCULAR HGB CONC 34.7 g/dl (32.0-36.5); MEAN CORPUSCULAR VOLUME 98.2 fl (80.0-96.0); RED BLOOD COUNT 4.57 10^6/uL (4.00-5.40); WHITE BLOOD COUNT 2.6 10^3/uL (4.0-10.0)
[2021-01-28 13:46] LABS: PLATELET COUNT, AUTOMATED 85 10^3/uL (150-450)
[2021-01-28] MEDS ORDERED: LORazepam 2 MG/ML VIAL IV STA (13:46)
[2021-01-28] MEDS ORDERED: LORazepam 2 MG TAB PO PRN (13:50)
[2021-01-28] MEDS ORDERED: MULTIVITAMIN -ADULT INJECTION 10 ML, THIAMINE INJection 100 MG, FOLIC ACID 1 MG in NS 1... IV ONE (13:50)
[2021-01-28 14:04] LABS: HCG, SERUM QUALITATIVE NEGATIVE (NEGATIVE)
[2021-01-28] MEDS ORDERED: ONDANSETRON 4MG/2ML VIAL IV ONE (14:05)
[2021-01-28 14:14] LABS: ACETAMINOPHEN LEVEL < 2.0 UG/ML (10.0-30.0); ALBUMIN 4.7 GM/DL (3.2-5.2); ALT/SGPT 181 U/L (12-78); BILIRUBIN,DIRECT 0.7 MG/DL (0.0-0.2); BILIRUBIN,TOTAL 2.3 MG/DL (0.2-1.0); BLOOD UREA NITROGEN 10 MG/DL (7-18); CALCIUM LEVEL 10.1 MG/DL (8.5-10.1); CARBON DIOXIDE LEVEL 24 MEQ/L (21-32); CHLORIDE LEVEL 93 MEQ/L (98-107); CREATININE FOR GFR 1.05 MG/DL (0.55-1.30); ETHYL ALCOHOL (ETHANOL) < 0.003 % (0.000-0.010); GLOMERULAR FILTRATION RATE > 60.0 (>60); GLUCOSE, FASTING 98 MG/DL (70-100); POTASSIUM SERUM 3.8 MEQ/L (3.5-5.1); SALICYLATE LEVEL < 1.7 MG/DL (5.0-30.0); SODIUM LEVEL 132 MEQ/L (136-145); TOTAL PROTEIN 9.3 GM/DL (6.4-8.2)
[2021-01-28] MEDS ORDERED: ISOVUE-370 76% 100ML VIAL As Ordered ONE (14:36)
--- NOTE | 2021-01-28 15:25 | REP ---
INDICATION: hematoma, falls. COMPARISON: None. TECHNIQUE: Helical scanning is acquired following the intravenous injection of 100 mL of Isovue 370. Coronal and sagittal MPR images are generated in addition to axial 3 mm slices. FINDINGS: Digital preliminary printed circuit boards plasma etcher radiograph is unremarkable. The lungs are well inflated and clear. There is no evidence of infiltrate, mass, atelectasis or effusion. No pericardial effusion is seen. There is good opacification of the pulmonary arterial tree as well as the thoracic aorta. No vascular abnormality is seen. No hilar or mediastinal mass or adenopathy is observed. Great vessels are unremarkable. No bony abnormality is seen. IMPRESSION: Negative CT study of the chest. No active cardiopulmonary disease. <Electronically signed by Olvin Montez > 01/28/21 [id number]
--- NOTE | 2021-01-28 15:29 | REP ---
INDICATION: left cva hematoma. COMPARISON: None. TECHNIQUE: Helical scanning was acquired and 4 mm axial images are re-formatted. Coronal and sagittal MPR images were generated and reviewed. The contrast enhancement dose is 100 mL of intravenous Isovue 370. FINDINGS: Preliminary digital executive assistant to president radiograph demonstrates a normal bowel gas pattern. Axial CT images demonstrate moderate to marked diffuse fatty infiltration of the liver. No hematoma or hemoperitoneum is seen. Spleen is normal in size homogeneous in texture. No abnormality is noted in the pancreas. Normal adrenal glands are seen. There is a subcutaneous contusion evident in the left para spinal region at the level of the upper abdomen. The kidneys enhance symmetrically and are morphologically intact. No rib or thoracolumbar spine fracture is appreciated. Pelvis is intact. Uterus is retroverted and tip to the right. No abnormality is noted in either adnexa. Small and large intestinal bowel loops are unremarkable. A normal sized appendix is seen in the right lower quadrant. Urinary bladder is unremarkable. No abdominal wall defect is seen. IMPRESSION: Moderate to marked diffuse fatty infiltration of the liver. Soft tissue contusion in the left. No traumatic intra-abnormality seen. No fracture noted. <Electronically signed by Olvin Montez > 01/28/21 [id number]
[2021-01-28 15:57] LABS: AMPHETAMINES LEVEL URINE NEGATIVE (NEGATIVE); BARBITURATES URINE NEGATIVE (NEGATIVE); BENZODIAZEPINES URINE POSITIVE (NEGATIVE); CANNABINOIDS URINE NEGATIVE (NEGATIVE); COCAINE METABOLITE URINE NEGATIVE (NEGATIVE); METHADONE URINE NEGATIVE (NEGATIVE); OPIATES URINE NEGATIVE (NEGATIVE); PHENCYCLIDINE URINE NEGATIVE (NEGATIVE)
[2021-01-28] MEDS ORDERED: FOLI1TAB11 PO (16:41)
[2021-01-28] MEDS ORDERED: ADDE20TA PO (16:41)
[2021-01-28] MEDS ORDERED: AMPH1CAP16 PO (16:41)
[2021-01-28] MEDS ORDERED: MAALOX 30 ML SUSP *UDC PO PRN (17:40)
[2021-01-28] MEDS ORDERED: ACETAMINOPHEN TAB 650MG DOSE (2X325MG) PO PRN (17:40)
[2021-01-28] MEDS ORDERED: MOM 30ML SUSPENSION UDC PO PRN (17:40)
[2021-01-28] MEDS ORDERED: D31000TA2 PO (17:49)
--- NOTE | 2021-01-28 17:53 | HPEPDOC ---
[facility] Medical History & Physical Date of Admission Jan 28, 2021 Date of Service: Jan 28, 2021 History and Physical CHIEF COMPLAINT: TREMULOUSNESS HISTORY OF PRESENT ILLNESS: 35-year-old female with a past medical history of ethanol use disorder on and off for the past 5 years. Patient recently suffered a fall grandfather and although she has been sober for the past 6 months or drinking heavily for the past 30 days. Last drink was approximately 4 days ago. She typically drinks 5 alcoholic seltzers and 5 shots of hard liquor. Yesterday she developed tremulousness, nausea, vomiting, malaise. She further states that she developed visual hallucinations, flashes of light, as well as symptoms of formication in her legs. She also endorses episode of vomiting that had dark material with specks of blood. In addition she endorses dark urine with dysuria and lower abdominal pain. At this time. She denies active hematemesis, bright red blood per rectum, melena, chest pain,or palpitations. Endorses mild shortness of breath and is found to be tachycardic on arrival, approximately 120s. EKG showing sinus rhythm. Patient CT chest, not show acute pulmonary normality nor pulmonary embolism. 5. The patient does endorse hitting her left posterior flank unremarkable at home. CT abdomen and pelvis did not indicate intra-abdominal bleeding, but did show soft tissue contusion. Blood work reviewed. Patient is not anemic. Sodium 132. Potassium 3.8. Total bilirubin 2.3. Troponin 0.7. AST ALT 293/181. Total protein is elevated at 9.3. He is positive for benzodiazepines. Of note, patient took a few tablets of Librium that she had at home from prior admission for alcohol withdrawal. PAST MEDICAL HISTORY: etoh use disorder ADHD PAST SURGICAL HISTORY: SOCIAL HISTORY: etoh use disorder non smoker denies illicit drug use ALLERGIES: Please see below. REVIEW OF SYSTEMS: 10 point ROS was conducted, relevant findings are noted in the HPI HOME MEDICATIONS: Please see below. PHYSICAL EXAMINATION: VITAL SIGNS: please see below General: NAD, comfortable HEENT: PERRLA, EOMI, sclerae clear Neck: supple, normal ROM, no JVD Respiratory: lungs CTAB, no wheeze, no rales, no crackles CVS: RRR, normal S1, S2, no murmurs Abdo: soft, no masses, no hepatosplenomegaly, BS+, no rebound tenderness Extremities: no edema, pulses 2+. calf tenderness on compression. no swelling MSK: no joint deformities, normal ROM. L posterior flank bruising Neuro: no focal neuro deficits, moving all 4 extremities, CN2-12 intact. Strength 5/5 in all 4 extremities. No nystagmus. Psych: calm, cooperative, AAO x 3 LABORATORY DATA: See below. IMAGING: CT chest with IV contrast (01/28/21) Negative CT study of the chest. No active cardiopulmonary disease. CT abdo pelvis with IV contrast (01/28/21) Moderate to marked diffuse fatty infiltration of the liver. Soft tissue contusion in the left. No traumatic intra-abnormality seen. No fracture noted. MICROBIOLOGY: Please see below. ASSESSMENT: There is external female with history of alcohol use disorder, admitted for acute alcohol withdrawal. PLAN: Acute alcohol withdrawal: - start patient on CIWA protocol with prn ativa - start serax 20 mg q6h scheduled - NS 125 cc/hr - folate, thiamine, MVT - SW for etoh use disorder resources Dark vomitus - possible due to esophageal tear vs gastritis - CT abdomen with contrast did not show evidence for esophageal varies - no further bleeding noted - start on pantoprazole 40 mg IV bid - start sucralfate - monitor for bleeding Tachycardia likely due to acute etoh withdrawal - HR sinus to 120s - CT Chest w IV contrast does not show PE - start IVF 125 cc/hr LE tenderness to palpation - check bilateral venous duplex Thrombocytopenia - likely in setting of etoh use - will trend - no signs of gross bleeding Transaminitis with hyperbilirubinemia - in context of recent heavy etoh use - check liver US - CT abdo showing fatty liver infiltration DVT ppx: lovenox daily Dispo: admission expect to last > 2 midnights Vital Signs Vital Signs Date Time Temp Pulse Resp B/P (MAP) Pulse Ox O2 Delivery O2 Flow Rate FiO2 01/28/21 16:59 100 99 01/28/21 16:45 148/94 (112) 01/28/21 11:59 97.2 18 Room Air Laboratory Data Labs 24H Laboratory Tests 2 01/28/21 12:41: Nucleated Red Blood Cells % (auto) 0.0, Immature Platelet Fraction 11.2H, Anion Gap 15, Glomerular Filtration Rate > 60.0, Calcium Level 10.1, Total Bilirubin 2.3H, Direct Bilirubin 0.7H, Aspartate Amino Transf (AST/SGOT) 293H, Alanine Aminotransferase (ALT/SGPT) 181H, Alkaline Phosphatase 100, Total Protein 9.3H, Albumin 4.7, Albumin/Globulin Ratio 1.0L, Thyroid Stimulating Hormone (TSH) 2.730, Human Chorionic Gonadotropin, Qual NEGATIVE, Salicylates Level < 1.7L, Acetaminophen Level < 2.0L, Ethyl Alcohol Level < 0.003 01/28/21 15:20: Urine Opiates Screen NEGATIVE, Urine Methadone Screen NEGATIVE, Urine Barbiturates Screen NEGATIVE, Urine Phencyclidine Screen NEGATIVE, Urine Amphetamines Screen NEGATIVE, Urine Benzodiazepines Screen POSITIVEH, Urine Cocaine Metabolite Screen NEGATIVE, Urine Cannabinoids Screen NEGATIVE CBC/BMP Laboratory Tests 01/28/21 12:41 Microbiology Microbiology 01/28/21 Respiratory Virus Panel (PCR) (RAD[facility]) - Final, Complete Home Medications Scheduled Cefuroxime Axetil (Cefuroxime) 500 Mg Tablet, 500 MG PO BID Cholecalciferol (Vitamin D3) (Vitamin D3) 1,000 Unit Tablet, 1,000 UNITS PO DAILY Dextroamphetamine/Amphetamine (Dextroamp-Amphet ER 20 mg Cap) 20 Mg Cap.er.24h, 20 MG PO DAILY Folic Acid (Folic Acid) 1 Mg Tablet, 1 MG PO DAILY Milk Thistle Seed Extract (Milk Thistle) 140 Mg Capsule, 140 MG PO DAILY Multivit-Min/FA/Lycopen/Lutein (Centrum Silver Tablet) 1 Each Tablet, 1 TAB PO DAILY Ovid-3 Fatty Acids/Fish Oil (Fish Oil 1,000 mg Capsule) 1 Each Capsule, 1,000 MG PO DAILY Pantoprazole Sodium (Protonix) 40 Mg Tablet.dr, 40 MG PO DAILY Thiamine HCl (Thiamine HCl) 100 Mg Tablet, 100 MG PO DAILY Scheduled PRN Dextroamphetamine/Amphetamine (Adderall 20 mg Tablet) 20 Mg Tablet, 20 MG PO DAILY PRN for A.D.D. Allergies Coded Allergies: Sulfa (Sulfonamide Antibiotics) (Verified Allergy, Unknown, 08/06/20) ciprofloxacin (Verified Allergy, Unknown, 08/06/20) A-FIB/CHADSVASC A-FIB History Current/History of A-Fib/PAF?: No Current PO Anticoag Therapy: No CRYS PARKER MD Jan 28, 2021 17:53
[2021-01-28] MEDS ORDERED: LORazepam 2 MG/ML VIAL IV ONE (18:45)
--- NOTE | 2021-01-28 19:07 | REPVR ---
PROCEDURE INFORMATION: Exam: US Duplex Lower Extremity Veins, Bilateral Exam date and time: 01/28/2021 6:46 PM Age: 35 years old Clinical indication: Pain; Leg, lower; Bilateral; Additional info: Transaminits, hyperbilirubinemia TECHNIQUE: Imaging protocol: Real-time duplex ultrasound of the extremities with 2-D montaño scale, color Doppler flow and spectral waveform analysis with image documentation. Complete exam focused on the bilateral lower extremity veins. COMPARISON: No relevant prior studies available. FINDINGS: Right deep veins: Unremarkable. The common femoral, femoral and popliteal veins are patent without thrombus. Normal Doppler waveforms. Normal compressibility and/or augmentation response. Right superficial veins: Saphenofemoral junction is patent without thrombus. Left deep veins: Unremarkable. The common femoral, femoral and popliteal veins are patent without thrombus. Normal Doppler waveforms. Normal compressibility and/or augmentation response. Left superficial veins: Saphenofemoral junction is patent without thrombus. Soft tissues: Unremarkable. IMPRESSION: No sonographic evidence of deep vein thrombosis. Electronically signed by: David Donald On 01/28/2021 19:07:55 PM
--- NOTE | 2021-01-28 19:08 | REPVR ---
PROCEDURE INFORMATION: Exam: US Abdomen, Limited; Right Upper Quadrant Exam date and time: 01/28/2021 6:46 PM Age: 35 years old Clinical indication: Abdominal pain; Acute; Additional info: Transaminits, hyperbilirubinemia TECHNIQUE: Imaging protocol: US abdomen. Real time ultrasound with image documentation. Limited exam focused on the right upper quadrant. COMPARISON: GALLBLADDER US 03/28/2019 4:17 PM FINDINGS: Liver: Echogenic, consistent with fatty infiltration. Gallbladder: No gallstones. No gallbladder wall thickening or pericholecystic fluid. Negative sonographic Carpenter's sign, as per the performing cytotechnologist. Common bile duct: No stones. No ductal dilatation. Pancreas: Unremarkable as visualized. Right kidney: No mass. No definite stones. No hydronephrosis. IMPRESSION: Fatty liver. Electronically signed by: David Donald On 01/28/2021 19:09:26 PM
[2021-01-28] MEDS: SUCRALFATE SUSP 1GM/10ML UD PO SCH (19:20)
[2021-01-28] MEDS: OXAZEPAM 10 MG CAP PO SCH ×2 (19:21→23:06)
[2021-01-28] MEDS: NS 1,000 ML IV SCH (19:43)
[2021-01-28 20:45] VITALS: BP 144/86
[2021-01-28] MEDS: DOCUSATE SODIUM 100MG CAPSULE PO SCH (21:08)
[2021-01-28] MEDS: PANTOPRAZOLE 40MG VIAL (C9113 PER 1) IV SCH (21:09)
[2021-01-28] MEDS: THIAMINE 100 MG TAB PO SCH (21:09)
[2021-01-29] MEDS: NS 1,000 ML IV SCH ×2 (02:21→12:44)
[2021-01-29] MEDS: RAMELTEON 8 MG TAB (ROZEREM) PO PRN ×2 (02:21→20:28)
[2021-01-29 04:59] VITALS: BP 124/89
[2021-01-29] MEDS: OXAZEPAM 10 MG CAP PO SCH ×4 (05:35→23:12)
[2021-01-29 06:00] VITALS: BP 124/89
[2021-01-29 06:27] LABS: BASO % 0.4 % (0.0-1.0); EOS # 0.1 10^3/uL (0.0-0.5); EOS % 2.9 % (0.0-3.0); HEMATOCRIT 37.2 % (36.0-47.0); LYMPH # 0.9 10^3/uL (1.5-5.0); LYMPH % 37.7 % (24.0-44.0); MEAN CORPUSCULAR HEMOGLOBIN 34.3 pg (27.0-33.0); MEAN CORPUSCULAR HGB CONC 34.7 g/dl (32.0-36.5); MEAN CORPUSCULAR VOLUME 98.9 fl (80.0-96.0); MONO # 0.4 10^3/uL (0.0-0.8); MONO % 16.3 % (2.0-8.0); NEUTROPHILS % 42.7 % (36.0-66.0); RED BLOOD COUNT 3.76 10^6/uL (4.00-5.40); WHITE BLOOD COUNT 2.4 10^3/uL (4.0-10.0)
[2021-01-29 06:34] LABS: HEMOGLOBIN 12.9 g/dl (12.0-15.5); PLATELET COUNT, AUTOMATED 65 10^3/uL (150-450)
[2021-01-29 06:55] LABS: ALBUMIN 3.6 GM/DL (3.2-5.2); ALT/SGPT 123 U/L (12-78); BILIRUBIN,TOTAL 1.5 MG/DL (0.2-1.0); BLOOD UREA NITROGEN 12 MG/DL (7-18); CALCIUM LEVEL 9.7 MG/DL (8.5-10.1); CARBON DIOXIDE LEVEL 25 MEQ/L (21-32); CHLORIDE LEVEL 103 MEQ/L (98-107); GLOMERULAR FILTRATION RATE > 60.0 (>60); GLUCOSE, FASTING 104 MG/DL (70-100); MAGNESIUM LEVEL 1.8 MG/DL (1.8-2.4); POTASSIUM SERUM 3.7 MEQ/L (3.5-5.1); SODIUM LEVEL 137 MEQ/L (136-145); TOTAL PROTEIN 7.1 GM/DL (6.4-8.2)
[2021-01-29] MEDS ORDERED: FOLIC ACID 1 MG TAB PO SCH (09:00)
[2021-01-29] MEDS ORDERED: MULTIVITAMINS/MINERALS THERAP 1 TAB PO SCH (09:00)
[2021-01-29] MEDS: ENOXAPARIN 40MG/0.4ML SYRINGE (J1650 PER 10MG) SC SCH (09:47)
[2021-01-29] MEDS: PANTOPRAZOLE 40MG VIAL (C9113 PER 1) IV SCH ×2 (09:47→20:28)
[2021-01-29] MEDS: DOCUSATE SODIUM 100MG CAPSULE PO SCH ×2 (09:48→20:28)
[2021-01-29] MEDS: SUCRALFATE SUSP 1GM/10ML UD PO SCH ×3 (09:48→18:03)
[2021-01-29] MEDS: THIAMINE 100 MG TAB PO SCH ×2 (09:48→20:28)
--- NOTE | 2021-01-29 12:51 | IPNPDOC ---
Date Seen The patient was seen on 01/29/21. Progress Note SUBJECTIVE: Patient was seen and examined at bedside this morning. She is pleasant, alert and cooperative. Overnight she did complain of visual hallucinations of people and moving hands or on her face. She's currently not tremulous. Denies any particular chest pain, palpitations, fevers or chills. She is alert and oriented 3. She is tolerating by mouth diet well. No vomiting, no bleeding. OBJECTIVE PHYSICAL EXAMINATION: VITAL SIGNS: please see below General: NAD, comfortable HEENT: PERRLA, EOMI, sclerae clear Neck: supple, normal ROM, no JVD Respiratory: lungs CTAB, no wheeze, no rales, no crackles CVS: RRR, normal S1, S2, no murmurs Abdo: soft, no masses, no hepatosplenomegaly, BS+, no rebound tenderness Extremities: no edema, pulses 2+ MSK: no joint deformities, normal ROM Neuro: no focal neuro deficits, moving all 4 extremities, CN2-12 intact. Strength 5/5 in all 4 extremities. No nystagmus. Psych: calm, cooperative, AAO x 3 LABORATORY DATA, IMAGING STUDIES, MICROBIOLOGY: Please see below. Venous duplex: (01/28/21): No sonographic evidence of deep vein thrombosis. Liver US (01/28/21): Liver: Echogenic, consistent with fatty infiltration. Gallbladder: No gallstones. No gallbladder wall thickening or pericholecystic fluid. Negative sonographic Carpenter's sign, as per the performing chairperson anesthesiology. Common bile duct: No stones. No ductal dilatation. Pancreas: Unremarkable as visualized. Right kidney: No mass. No definite stones. No hydronephrosis. IMPRESSION: Fatty liver. CT chest with IV contrast (01/28/21) Negative CT study of the chest. No active cardiopulmonary disease. CT abdo pelvis with IV contrast (01/28/21) Moderate to marked diffuse fatty infiltration of the liver. Soft tissue contusion in the left. No traumatic intra-abnormality seen. No fracture noted. DVT prophylaxis ordered?: Lovenox 40 mg daily ASSESSMENT AND PLAN: There is A 35 YO female with history of alcohol use disorder, admitted for acute alcohol withdrawal, c/o visual hallucinations. PLAN: Acute alcohol withdrawal with visual hallucination: - start patient on CIWA protocol with prn ativa - start serax 20 mg q6h scheduled - DC IVF - folate, thiamine, MVT - SW for etoh use disorder resources - patient is c/o visual hallucinations overnight - d/w Dr. Choi, recommends haldol 2 mg PO qhs prn for visual hallucination - c/w present regimen Dark vomitus - possible due to esophageal tear vs gastritis - CT abdomen with contrast did not show evidence for esophageal varies - no further bleeding noted - start on pantoprazole 40 mg IV bid - start sucralfate - monitor for bleeding Thrombocytopenia - likely relate to chronic etoh use - close monitoring Tachycardia likely due to acute etoh withdrawal - improved - CT Chest w IV contrast does not show PE - DC IVF LE tenderness to palpation - check bilateral venous duplex - no evidence for DVT Transaminitis with hyperbilirubinemia - in context of recent heavy etoh use - check liver US - fatty liver - CT abdo showing fatty liver infiltration DVT ppx: lovenox daily Dispo: admission expect to last > 2 midnights VS, I&O, 24H, Fishbone Vital Signs/I&O Vital Signs Date Time Temp Pulse Resp B/P (MAP) Pulse Ox O2 Delivery O2 Flow Rate FiO2 01/29/21 06:00 97.0 103 18 124/89 (101) 98 01/28/21 20:45 Room Air I&O- Last 24 Hours up to 6 AM 01/29/21 06:00 Intake Total 3040 ml Output Total 1150 ml Balance 1890 ml Laboratory Data 24H LABS Laboratory Tests 2 01/28/21 12:41: Nucleated Red Blood Cells % (auto) 0.0, Immature Platelet Fraction 11.2H, Anion Gap 15, Glomerular Filtration Rate > 60.0, Calcium Level 10.1, Total Bilirubin 2.3H, Direct Bilirubin 0.7H, Aspartate Amino Transf (AST/SGOT) 293H, Alanine Aminotransferase (ALT/SGPT) 181H, Alkaline Phosphatase 100, Total Protein 9.3H, Albumin 4.7, Albumin/Globulin Ratio 1.0L, Thyroid Stimulating Hormone (TSH) 2.730, Human Chorionic Gonadotropin, Qual NEGATIVE, Salicylates Level < 1.7L, Acetaminophen Level < 2.0L, Ethyl Alcohol Level < 0.003 01/28/21 15:20: Urine Opiates Screen NEGATIVE, Urine Methadone Screen NEGATIVE, Urine Barbiturates Screen NEGATIVE, Urine Phencyclidine Screen NEGATIVE, Urine Amphetamines Screen NEGATIVE, Urine Benzodiazepines Screen POSITIVEH, Urine Cocaine Metabolite Screen NEGATIVE, Urine Cannabinoids Screen NEGATIVE 01/28/21 23:15: Urine Color YELLOW, Urine Appearance CLEAR, Urine pH 7.0, Urine Specific [place] 1.005, Urine Protein NEGATIVE, Urine Glucose (UA) NEGATIVE, Urine Ketones TRACEH, Urine Blood NEGATIVE, Urine Nitrite NEGATIVE, Urine Bilirubin NEGATIVE, Urine Urobilinogen 0.2, Urine Leukocyte Esterase 2+H, Urine WBC (Auto) 9H, Urine RBC (Auto) 0, Urine Hyaline Casts (Auto) 0, Urine Bacteria (Auto) 2+H, Urine Squamous Epithelial Cells 1, Urine Sperm (Auto) 01/29/21 05:35: Nucleated Red Blood Cells % (auto) 0.0, Anion Gap 9, Glomerular Filtration Rate > 60.0, Calcium Level 9.7, Total Bilirubin 1.5H, Aspartate Amino Transf (AST/SGOT) 166H, Alanine Aminotransferase (ALT/SGPT) 123H, Alkaline Phosphatase 109, Total Protein 7.1#, Albumin 3.6#, Albumin/Globulin Ratio 1.0L, Immature Granulocyte % (Auto) 0.0, Neutrophils (%) (Auto) 42.7, Lymphocytes (%) (Auto) 37.7, Monocytes (%) (Auto) 16.3H, Eosinophils (%) (Auto) 2.9, Basophils (%) (Auto) 0.4, Neutrophils # (Auto) 1.0L, Lymphocytes # (Auto) 0.9L, Monocytes # (Auto) 0.4, Eosinophils # (Auto) 0.1, Basophils # (Auto) 0.0, Magnesium Level 1.8 CBC/BMP Laboratory Tests 01/28/21 12:41 01/29/21 05:35 Microbiology Microbiology 01/28/21 Urine Culture, Received Pending 01/28/21 Respiratory Virus Panel (PCR) ([facility]) - Final, Complete POLINKEVYCHCRYS MD Jan 29, 2021 12:51
[2021-01-29] MEDS: MULTIVITAMINS/MINERALS THERAP 1 TAB PO SCH (12:57)
[2021-01-29] MEDS: FOLIC ACID 1 MG TAB PO SCH (12:57)
[2021-01-29 14:00] VITALS: BP 124/88
[2021-01-29 22:00] VITALS: BP 128/89
[2021-01-30] MEDS: OXAZEPAM 10 MG CAP PO SCH ×3 (05:01→18:32)
[2021-01-30 06:00] VITALS: BP 127/89
[2021-01-30 06:43] LABS: BASO % 0.9 % (0.0-1.0); EOS # 0.1 10^3/uL (0.0-0.5); EOS % 3.8 % (0.0-3.0); HEMATOCRIT 36.4 % (36.0-47.0); HEMOGLOBIN 12.2 g/dl (12.0-15.5); LYMPH # 0.9 10^3/uL (1.5-5.0); LYMPH % 36.2 % (24.0-44.0); MEAN CORPUSCULAR HEMOGLOBIN 33.3 pg (27.0-33.0); MEAN CORPUSCULAR HGB CONC 33.5 g/dl (32.0-36.5); MEAN CORPUSCULAR VOLUME 99.5 fl (80.0-96.0); MONO # 0.4 10^3/uL (0.0-0.8); MONO % 16.6 % (2.0-8.0); NEUTROPHILS % 42.1 % (36.0-66.0); PLATELET COUNT, AUTOMATED 69 10^3/uL (150-450); RED BLOOD COUNT 3.66 10^6/uL (4.00-5.40); WHITE BLOOD COUNT 2.4 10^3/uL (4.0-10.0)
[2021-01-30 07:06] LABS: ALBUMIN 3.5 GM/DL (3.2-5.2); ALT/SGPT 93 U/L (12-78); BLOOD UREA NITROGEN 6 MG/DL (7-18); CALCIUM LEVEL 9.5 MG/DL (8.5-10.1); CARBON DIOXIDE LEVEL 32 MEQ/L (21-32); CHLORIDE LEVEL 102 MEQ/L (98-107); GLOMERULAR FILTRATION RATE > 60.0 (>60); GLUCOSE, FASTING 101 MG/DL (70-100); MAGNESIUM LEVEL 1.5 MG/DL (1.8-2.4); POTASSIUM SERUM 4.4 MEQ/L (3.5-5.1); SODIUM LEVEL 138 MEQ/L (136-145); TOTAL PROTEIN 6.9 GM/DL (6.4-8.2)
[2021-01-30] MEDS: ENOXAPARIN 40MG/0.4ML SYRINGE (J1650 PER 10MG) SC SCH (08:51)
[2021-01-30] MEDS: SUCRALFATE SUSP 1GM/10ML UD PO SCH ×3 (10:01→18:32)
[2021-01-30] MEDS: THIAMINE 100 MG TAB PO SCH ×2 (10:02→20:39)
[2021-01-30] MEDS: MULTIVITAMINS/MINERALS THERAP 1 TAB PO SCH (10:02)
[2021-01-30] MEDS: FOLIC ACID 1 MG TAB PO SCH (10:02)
[2021-01-30] MEDS: PANTOPRAZOLE 40MG VIAL (C9113 PER 1) IV SCH ×2 (10:02→20:39)
[2021-01-30] MEDS: DOCUSATE SODIUM 100MG CAPSULE PO SCH ×2 (10:03→20:39)
--- NOTE | 2021-01-30 12:04 | IPNPDOC ---
Date Seen The patient was seen on 01/30/21. Progress Note SUBJECTIVE: Patient was seen and examined at bedside this morning. She is pleasant, alert and cooperative. Complex hallucinations have resolved, ie she isnt seeing people but continues to have flashes of light overnight. She's currently not tremulous. Denies any particular chest pain, palpitations, fevers or chills. She is alert and oriented 3. She is tolerating by mouth diet well. No vomiting, no bleeding. OBJECTIVE PHYSICAL EXAMINATION: VITAL SIGNS: please see below General: NAD, comfortable HEENT: PERRLA, EOMI, sclerae clear Neck: supple, normal ROM, no JVD Respiratory: lungs CTAB, no wheeze, no rales, no crackles CVS: RRR, normal S1, S2, no murmurs Abdo: soft, no masses, no hepatosplenomegaly, BS+, no rebound tenderness Extremities: no edema, pulses 2+ MSK: no joint deformities, normal ROM Neuro: no focal neuro deficits, moving all 4 extremities, CN2-12 intact. Strength 5/5 in all 4 extremities. No nystagmus. Psych: calm, cooperative, AAO x 3 LABORATORY DATA, IMAGING STUDIES, MICROBIOLOGY: Please see below. Venous duplex: (01/28/21): No sonographic evidence of deep vein thrombosis. Liver US (01/28/21): Liver: Echogenic, consistent with fatty infiltration. Gallbladder: No gallstones. No gallbladder wall thickening or pericholecystic fluid. Negative sonographic Carpenter's sign, as per the performing directory assistance operator. Common bile duct: No stones. No ductal dilatation. Pancreas: Unremarkable as visualized. Right kidney: No mass. No definite stones. No hydronephrosis. IMPRESSION: Fatty liver. CT chest with IV contrast (01/28/21) Negative CT study of the chest. No active cardiopulmonary disease. CT abdo pelvis with IV contrast (01/28/21) Moderate to marked diffuse fatty infiltration of the liver. Soft tissue contusion in the left. No traumatic intra-abnormality seen. No fracture noted. DVT prophylaxis ordered?: Lovenox 40 mg daily ASSESSMENT AND PLAN: There is A 35 YO female with history of alcohol use disorder, admitted for acute alcohol withdrawal, c/o visual hallucinations. PLAN: Acute alcohol withdrawal with visual hallucination: - start patient on CIWA protocol with prn ativa - start serax 20 mg q6h scheduled - DC IVF - folate, thiamine, MVT - SW for etoh use disorder resources - patient is c/o simple visual hallucinations overnight (flashes of light - d/w Dr. Choi, recommends haldol 2 mg PO qhs prn for visual hallucination - D/w Dr. Iglesias this morning, recommends keeping patient admitted until visual hallucinations resolve - will change haldol from prn to scheduled qhs. Dark vomitus - possible due to esophageal tear vs gastritis - CT abdomen with contrast did not show evidence for esophageal varies - no further bleeding noted - start on pantoprazole 40 mg IV bid - start sucralfate - monitor for bleeding - hgb remains stable Thrombocytopenia - likely 2/2 chronic etoh use - will check DIC panel Tachycardia likely due to acute etoh withdrawal - improved - CT Chest w IV contrast does not show PE - DC IVF LE tenderness to palpation - check bilateral venous duplex - no evidence for DVT Transaminitis with hyperbilirubinemia - in context of recent heavy etoh use - check liver US - fatty liver - CT abdo showing fatty liver infiltration DVT ppx: lovenox daily Dispo: admission expect to last > 2 midnights VS, I&O, 24H, Fishbone Vital Signs/I&O Vital Signs Date Time Temp Pulse Resp B/P (MAP) Pulse Ox O2 Delivery O2 Flow Rate FiO2 01/30/21 06:00 98.4 101 20 127/89 (102) 100 01/29/21 14:00 Room Air I&O- Last 24 Hours up to 6 AM 01/30/21 06:00 Intake Total 2040 ml Output Total 4100 ml Balance -2060 ml Laboratory Data 24H LABS Laboratory Tests 2 01/30/21 06:06: Immature Granulocyte % (Auto) 0.4, Neutrophils (%) (Auto) 42.1, Lymphocytes (%) (Auto) 36.2, Monocytes (%) (Auto) 16.6H, Eosinophils (%) (Auto) 3.8H, Basophils (%) (Auto) 0.9, Neutrophils # (Auto) 1.0L, Lymphocytes # (Auto) 0.9L, Monocytes # (Auto) 0.4, Eosinophils # (Auto) 0.1, Basophils # (Auto) 0.0, Nucleated Red Blood Cells % (auto) 0.0, Immature Platelet Fraction 11.4H, Anion Gap 4L, Glomerular Filtration Rate > 60.0, Calcium Level 9.5, Magnesium Level 1.5L, Total Bilirubin 1.0, Aspartate Amino Transf (AST/SGOT) 85H, Alanine Aminotransferase (ALT/SGPT) 93H, Alkaline Phosphatase 114, Total Protein 6.9, Albumin 3.5, Albumin/Globulin Ratio 1.0L CBC/BMP Laboratory Tests 01/30/21 06:06 Microbiology Microbiology 01/28/21 Urine Culture, Received Pending 01/28/21 Respiratory Virus Panel (PCR) (RAD[facility]) - Final, Complete POLINKEVYCHCRYS MD Jan 30, 2021 12:04
[2021-01-30 12:46] VITALS: BP 127/88
[2021-01-30 13:04] LABS: INR 0.93; PROTHROMBIN TIME 12.6 SECONDS (12.5-14.3)
[2021-01-30 13:05] LABS: PARTIAL THROMBOPLASTIN TIME 24.8 SECONDS (24.2-38.5)
[2021-01-30 13:08] LABS: D-DIMER QUANT 509.52 ng/ml (<500)
[2021-01-30 14:00] VITALS: BP 125/86
[2021-01-30] MEDS ORDERED: LORazepam 2 MG TAB PO PRN (16:00)
[2021-01-30] MEDS ORDERED: LORazepam 1 MG TAB PO ONE (16:00)
[2021-01-30 22:00] VITALS: BP 121/84
[2021-01-31] MEDS: OXAZEPAM 10 MG CAP PO SCH ×3 (00:18→13:27)
[2021-01-31 06:00] VITALS: BP_DIAS 105
[2021-01-31 06:25] LABS: WHITE BLOOD COUNT 2.8 10^3/uL (4.0-10.0)
[2021-01-31 06:26] LABS: BASO % 0.7 % (0.0-1.0); EOS # 0.1 10^3/uL (0.0-0.5); EOS % 3.2 % (0.0-3.0); HEMATOCRIT 35.7 % (36.0-47.0); HEMOGLOBIN 12.3 g/dl (12.0-15.5); LYMPH % 36.7 % (24.0-44.0); MEAN CORPUSCULAR HEMOGLOBIN 34.4 pg (27.0-33.0); MEAN CORPUSCULAR HGB CONC 34.5 g/dl (32.0-36.5); MEAN CORPUSCULAR VOLUME 99.7 fl (80.0-96.0); MONO # 0.5 10^3/uL (0.0-0.8); MONO % 18.4 % (2.0-8.0); NEUTROPHILS # 1.2 10^3/uL (1.5-8.5); NEUTROPHILS % 40.6 % (36.0-66.0); PLATELET COUNT, AUTOMATED 86 10^3/uL (150-450); RED BLOOD COUNT 3.58 10^6/uL (4.00-5.40)
[2021-01-31 06:58] LABS: ALBUMIN 3.4 GM/DL (3.2-5.2); ALT/SGPT 73 U/L (12-78); BILIRUBIN,TOTAL 0.6 MG/DL (0.2-1.0); BLOOD UREA NITROGEN 6 MG/DL (7-18); CALCIUM LEVEL 9.5 MG/DL (8.5-10.1); CARBON DIOXIDE LEVEL 29 MEQ/L (21-32); CHLORIDE LEVEL 101 MEQ/L (98-107); CREATININE FOR GFR 0.53 MG/DL (0.55-1.30); GLOMERULAR FILTRATION RATE > 60.0 (>60); GLUCOSE, FASTING 105 MG/DL (70-100); MAGNESIUM LEVEL 1.4 MG/DL (1.8-2.4); POTASSIUM SERUM 3.5 MEQ/L (3.5-5.1); SODIUM LEVEL 138 MEQ/L (136-145); TOTAL PROTEIN 6.7 GM/DL (6.4-8.2)
[2021-01-31] MEDS: DOCUSATE SODIUM 100MG CAPSULE PO SCH (08:09)
[2021-01-31] MEDS: MULTIVITAMINS/MINERALS THERAP 1 TAB PO SCH (08:09)
[2021-01-31] MEDS: THIAMINE 100 MG TAB PO SCH (08:09)
[2021-01-31] MEDS: SUCRALFATE SUSP 1GM/10ML UD PO SCH ×2 (08:09→13:27)
[2021-01-31] MEDS: FOLIC ACID 1 MG TAB PO SCH (08:09)
[2021-01-31] MEDS: PANTOPRAZOLE 40MG VIAL (C9113 PER 1) IV SCH (08:10)
[2021-01-31] MEDS: ENOXAPARIN 40MG/0.4ML SYRINGE (J1650 PER 10MG) SC SCH (08:10)
[2021-01-31] MEDS ORDERED: CEFUROXIME 500 MG TAB PO SCH (11:00)
[2021-01-31] MEDS ORDERED: CEFU50TA PO (11:59)
[2021-01-31] MEDS ORDERED: THIA100T7 PO (11:59)
[2021-01-31] MEDS ORDERED: PROT1TAB2 PO (11:59)
--- NOTE | 2021-01-31 19:37 | DS.PDOC ---
Discharge Summary General Date of Admission Jan 28, 2021 at 11:59 Date of Discharge 01/31/21 Attending Physician: Vanessa Moya MD Discharge Summary HISTORY OF PRESENT ILLNESS: 35-year-old female with a past medical history of ethanol use disorder on and off for the past 5 years. Patient recently suffered a fall grandfather and although she has been sober for the past 6 months or drinking heavily for the past 30 days. Last drink was approximately 4 days ago. She typically drinks 5 alcoholic seltzers and 5 shots of hard liquor. Yesterday she developed tremulousness, nausea, vomiting, malaise. She further states that she developed visual hallucinations, flashes of light, as well as symptoms of formication in her legs. She also endorses episode of vomiting that had dark material with specks of blood. In addition she endorses dark urine with dysuria and lower abdominal pain. At this time. She denies active hematemesis, bright red blood per rectum, melena, chest pain,or palpitations. Endorses mild shortness of breath and is found to be tachycardic on arrival, approximately 120s. EKG showing sinus rhythm. Patient CT chest, not show acute pulmonary normality nor pulmonary embolism. 5. The patient does endorse hitting her left posterior flank unremarkable at home. CT abdomen and pelvis did not indicate intra-abdominal bleeding, but did show soft tissue contusion. Blood work reviewed. Patient is not anemic. Sodium 132. Potassium 3.8. Total bilirubin 2.3. Troponin 0.7. AST ALT 293/181. Total protein is elevated at 9.3. He is positive for benzodiazepines. Of note, patient took a few tablets of Librium that she had at home from prior admission for alcohol withdrawal. HOSPITAL COURSE: Patient was treated with serax, ativan, haldol PRN for acute alcohol withdrawal with visual hallucinations. Psych was consulted over the phone. Patient much improved over her hospitalization, on 01/31/21 decision was made to d/c with thiamine, has MV at home. Patient states she does not need additional information for rehab, etc. Alcohol cessation recommended. She had dark vomitus x 2 likely 2/2 to gastritis 2/2 to alcohol abuse, CT abdomen with contrast did not show evidence for esophageal varies, no further bleeding noted. She will be discharged with PPI , f/u with PCP . Chronic thrombocytopenia likely 2/2 chronic etoh use and should be monitored closely by PCP. Transaminitis with hyperbilirubinemia likely 2/2 to heavy etoh use, fatty liver. AST/ALT improved. For Klebsiella UTI, ceftin 500 mg PO BID x 5 days. Advised if symptoms continue to let PCP know and can extend duration of abx out. PAST MEDICAL HISTORY: etoh disorder ADHD SOCIAL HISTORY: etoh use disorder non smoker denies illicit drug use DISCHARGE MEDICATIONS: Please see below PHYSICAL EXAMINATION: VITAL SIGNS: please see below General: NAD, comfortable, AAOx 3 HEENT: PERRLA, EOMI, sclerae clear Neck: supple, normal ROM, no JVD Respiratory: lungs CTAB, no wheeze, no rales, no crackles CVS: RRR, normal S1, S2, no murmurs Abdo: soft, no masses, no hepatosplenomegaly, BS+, no rebound tenderness Extremities: no edema, pulses 2+ MSK: no joint deformities, normal ROM Neuro: no focal neuro deficits, moving all 4 extremities, CN2-12 intact. Strength 5/5 in all 4 extremities. No nystagmus. Psych: calm, cooperative LABORATORY DATA, IMAGING STUDIES, MICROBIOLOGY: Please see below. Venous duplex: (01/28/21): No sonographic evidence of deep vein thrombosis. Liver US (01/28/21): Liver: Echogenic, consistent with fatty infiltration. Gallbladder: No gallstones. No gallbladder wall thickening or pericholecystic fluid. Negative sonographic Carpenter's sign, as per the performing shot hole driller. Common bile duct: No stones. No ductal dilatation. Pancreas: Unremarkable as visualized. Right kidney: No mass. No definite stones. No hydronephrosis. IMPRESSION: Fatty liver. CT chest with IV contrast (01/28/21) Negative CT study of the chest. No active cardiopulmonary disease. CT abdo pelvis with IV contrast (01/28/21) Moderate to marked diffuse fatty infiltration of the liver. Soft tissue contusion in the left. No traumatic intra-abnormality seen. No fracture noted. DVT prophylaxis ordered?: Lovenox 40 mg daily ASSESSMENT AND PLAN: There is A 35 YO female with history of alcohol use disorder, admitted for acute alcohol withdrawal, c/o visual hallucinations. PLAN: Acute alcohol withdrawal with visual hallucination -Resolved -D/mariola with thiamine, has MV at home -Patient states she does not need additional information for rehab, etc -Alcohol cessation recommended -To f/u with PCP Dark vomitus x 2 likely 2/2 to gastritis 2/2 to alcohol abuse - CT abdomen with contrast did not show evidence for esophageal varies - no further bleeding noted -C/w home with PPI , f/u with PCP Thrombocytopenia likely 2/2 chronic etoh use -No s/s of bleeding -Recommend close f/u with PCP Transaminitis with hyperbilirubinemia - in context of recent heavy etoh use - check liver US - fatty liver - CT abdo showing fatty liver infiltration -AST/ALT improved -F/u with PCP Klebsiella UTI -Ceftin 500 mg PO BID x 5 days -Advised if symptoms continue to let PCP know and can extend duration of abx out DISPOSITION: D/c home to f/u with PCP within 1-2 weeks. TIME SPENT ON DISCHARGE: 35 minutes. Vital Signs/I&Os Vital Signs Date Time Temp Pulse Resp B/P (MAP) Pulse Ox O2 Delivery O2 Flow Rate FiO2 01/31/21 06:00 98.3 94 20 /105 (70) 98 Room Air I&O- Last 24 Hours up to 6 AM 01/31/21 06:00 Intake Total 3040 ml Output Total 5825 ml Balance -2785 ml Laboratory Data Labs 24H Laboratory Tests 2 01/31/21 06:03: Immature Granulocyte % (Auto) 0.4, Neutrophils (%) (Auto) 40.6, Lymphocytes (%) (Auto) 36.7, Monocytes (%) (Auto) 18.4H, Eosinophils (%) (Auto) 3.2H, Basophils (%) (Auto) 0.7, Neutrophils # (Auto) 1.2L, Lymphocytes # (Auto) 1.0L, Monocytes # (Auto) 0.5, Eosinophils # (Auto) 0.1, Basophils # (Auto) 0.0, Nucleated Red Blood Cells % (auto) 0.0, Anion Gap 8, Glomerular Filtration Rate > 60.0, Calcium Level 9.5, Magnesium Level 1.4L, Total Bilirubin 0.6, Aspartate Amino Transf (AST/SGOT) 51H, Alanine Aminotransferase (ALT/SGPT) 73, Alkaline Phosphatase 125H, Total Protein 6.7, Albumin 3.4, Albumin/Globulin Ratio 1.0L CBC/BMP Laboratory Tests 01/31/21 06:03 Microbiology Microbiology 01/28/21 Urine Culture - Final, Complete Klebsiella Pneumoniae 01/28/21 Respiratory Virus Panel (PCR) ([facility]) - Final, Complete Discharge Medications Scheduled Cefuroxime Axetil (Cefuroxime) 500 Mg Tablet, 500 MG PO BID Cholecalciferol (Vitamin D3) (Vitamin D3) 1,000 Unit Tablet, 1,000 UNITS PO DAILY, (Reported) Dextroamphetamine/Amphetamine (Dextroamp-Amphet ER 20 mg Cap) 20 Mg Cap.er.24h, 20 MG PO DAILY, (Reported) Folic Acid (Folic Acid) 1 Mg Tablet, 1 MG PO DAILY, (Reported) Milk Thistle Seed Extract (Milk Thistle) 140 Mg Capsule, 140 MG PO DAILY, (Reported) Multivit-Min/FA/Lycopen/Lutein (Centrum Silver Tablet) 1 Each Tablet, 1 TAB PO DAILY, (Reported) [place]-3 Fatty Acids/Fish Oil (Fish Oil 1,000 mg Capsule) 1 Each Capsule, 1,000 MG PO DAILY, (Reported) Pantoprazole Sodium (Protonix) 40 Mg Tablet.dr, 40 MG PO DAILY Thiamine HCl (Thiamine HCl) 100 Mg Tablet, 100 MG PO DAILY Scheduled PRN Dextroamphetamine/Amphetamine (Adderall 20 mg Tablet) 20 Mg Tablet, 20 MG PO DAILY PRN for A.D.D. , (Reported) Allergies Coded Allergies: Sulfa (Sulfonamide Antibiotics) (Verified Allergy, Unknown, 08/06/20) ciprofloxacin (Verified Allergy, Unknown, 08/06/20) Vanessa Moya MD Jan 31, 2021 19:37
== END 2021-01-31 14:28 | disposition home or self-care (01) ==
LOC: M ED 11:58 → M ED INP 11:59 → ENRESERV 19:05 → M MSPAV 20:47
PROVIDERS: ADMIT Family Medicine; ATTEND Internal Medicine
DX: F10.230 Alcohol dependence with withdrawal, uncomplicated (principal); R44.1 Visual hallucinations; R11.10 Vomiting, unspecified; D69.59 Other secondary thrombocytopenia; R74.01 Elevation of levels of liver transaminase levels; E80.6 Other disorders of bilirubin metabolism; N39.0 Urinary tract infection, site not specified; B96.1 Klebsiella pneumoniae [K. pneumoniae] as the cause of diseases classified elsewhere; R00.0 Tachycardia, unspecified; K76.0 Fatty (change of) liver, not elsewhere classified; R20.2 Paresthesia of skin; S30.1XXA Contusion of abdominal wall, initial encounter; W19.XXXA Unspecified fall, initial encounter; Y92.098 Other place in other non-institutional residence as the place of occurrence of the external cause; M79.605 Pain in left leg; R06.02 Shortness of breath; F90.9 Attention-deficit hyperactivity disorder, unspecified type; Z79.899 Other long term (current) drug therapy; Z79.2 Long term (current) use of antibiotics; Z88.2 Allergy status to sulfonamides; Z88.1 Allergy status to other antibiotic agents
CPT/HCPCS: 36415; 71260; 74177; 76705; 80048; 80053; 80076; 80143; 80307; 82077; 83735; 84443; 84703; 85025; 85027; 85049; 85055; 85379; 85384; 85610; 85730; 87088; 87186; 87798; 93041; 93970; 96361; 96372; 96374; 96375; 96376; 99285; C9113; J1650; J2060; J2405; J3411; Q9967

== ENCOUNTER 2021-09-10 11:04 | Inpatient (IN) | payer OTHER, SELFPAY ==
[~2021-09-10 11:04] MED LIST changes: +AMPH1CAP16 PO; +CEFU50TA PO; +D31000TA2 PO; +PROT1TAB2 PO; +THIA100T7 PO
[2021-09-10] MEDS ORDERED: MELA2.5C4 PO (11:12)
[2021-09-10] MEDS ORDERED: MAGN400C PO (11:12)
[2021-09-10] MEDS ORDERED: LR 1,000 ML IV ONE (11:45)
[2021-09-10] MEDS ORDERED: ONDANSETRON 4MG/2ML VIAL IV ONE (11:45)
[2021-09-10] MEDS ORDERED: LORazepam 2 MG TAB PO PRN (11:45)
[2021-09-10] MEDS ORDERED: LORazepam 2 MG/ML VIAL IV STA ×2 (11:54→13:23)
[2021-09-10 12:27] LABS: BASO % 0.3 % (0.0-1.0); EOS % 0.3 % (0.0-3.0); HEMATOCRIT 41.9 % (36.0-47.0); HEMOGLOBIN 14.4 g/dl (12.0-15.5); LYMPH # 0.4 10^3/uL (1.5-5.0); LYMPH % 12.1 % (24.0-44.0); MEAN CORPUSCULAR HGB CONC 34.4 g/dl (32.0-36.5); MEAN CORPUSCULAR VOLUME 99.1 fl (80.0-96.0); MONO # 0.4 10^3/uL (0.0-0.8); MONO % 12.1 % (2.0-8.0); NEUTROPHILS # 2.3 10^3/uL (1.5-8.5); NEUTROPHILS % 74.5 % (36.0-66.0); RED BLOOD COUNT 4.23 10^6/uL (4.00-5.40); WHITE BLOOD COUNT 3.1 10^3/uL (4.0-10.0)
[2021-09-10 12:43] LABS: INR 0.99; PROTHROMBIN TIME 13.5 SECONDS (12.7-14.5)
[2021-09-10 12:44] LABS: PARTIAL THROMBOPLASTIN TIME 27.2 SECONDS (25.9-37.0)
[2021-09-10 12:49] LABS: ALBUMIN 4.3 GM/DL (3.2-5.2); ALT/SGPT 126 U/L (12-78); BILIRUBIN,DIRECT 0.4 MG/DL (0.0-0.2); BILIRUBIN,TOTAL 0.9 MG/DL (0.2-1.0); LIPASE 113 U/L (73-393)
[2021-09-10 12:59] LABS: PLATELET COUNT, AUTOMATED 86 10^3/uL (150-450)
[2021-09-10 13:19] LABS: URINE PREG TEST NEGATIVE (NEGATIVE)
[2021-09-10 13:20] LABS: APPEARANCE, URINE CLEAR (CLEAR); BACTERIA, URINE AUTO 1+ (NEGATIVE); BILIRUBIN, URINE AUTO NEGATIVE (NEGATIVE); BLOOD, URINE BLOOD NEGATIVE (NEGATIVE); COLOR, URINE YELLOW (YELLOW); GLUCOSE, URINE (UA) AUTO NEGATIVE (NEGATIVE); KETONE, URINE AUTO 2+ mg/dL (NEGATIVE); LEUKOCYTE ESTERASE, URINE AUTO NEGATIVE (NEGATIVE); NITRITE, URINE AUTO NEGATIVE (NEGATIVE); PROTEIN, URINE AUTO 1+ mg/dL (NEGATIVE); RBC, URINE AUTO 0 /HPF (0-3); SPECIFIC GRAVITY URINE AUTO 1.013 (1.002-1.035); SQUAMOUS EPITHELIAL CELL UR AU 2 /HPF (0-6); UROBILINOGEN, URINE AUTO 0.2 mg/dL (0.0-2.0); WBC, URINE AUTO 1 /HPF (0-3)
[2021-09-10 13:42] LABS: BLOOD UREA NITROGEN 5 MG/DL (7-18); CALCIUM LEVEL 9.5 MG/DL (8.5-10.1); CARBON DIOXIDE LEVEL 17 MEQ/L (21-32); CHLORIDE LEVEL 96 MEQ/L (98-107); CREATININE FOR GFR 0.75 MG/DL (0.55-1.30); GLOMERULAR FILTRATION RATE > 60.0 (>60); GLUCOSE, FASTING 70 MG/DL (70-100); POTASSIUM SERUM 3.9 MEQ/L (3.5-5.1); SODIUM LEVEL 134 MEQ/L (136-145)
[2021-09-10] MEDS: NS 1,000 ML IV SCH ×2 (15:00→23:09)
[2021-09-10 17:18] LABS: RSV AMPLIFICATION NEGATIVE (NEGATIVE)
[2021-09-10] MEDS ORDERED: THIA100T7 PO (17:24)
[2021-09-10] MEDS ORDERED: SKULLCAP PO (17:28)
[2021-09-10] MEDS ORDERED: HOME MED LIST COMPLETE! XX SCH (17:30)
[2021-09-10] MEDS: OXAZEPAM 15 MG CAP PO SCH ×2 (18:30→23:09)
[2021-09-10] MEDS: CEPHALEXIN 250MG CAPSULE PO SCH ×2 (18:30→23:09)
[2021-09-10] MEDS: THIAMINE 100 MG TAB PO SCH (20:40)
[2021-09-10] MEDS ORDERED: ENOXAPARIN 40MG/0.4ML SYRINGE (J1650 PER 10MG) SC SCH (21:00)
[2021-09-10 22:30] VITALS: BP 149/98
[2021-09-11] MEDS ORDERED: ONDANSETRON 4 MG ORAL DISINTEGRATING TAB PO PRN (02:00)
[2021-09-11] MEDS: RAMELTEON 8 MG TAB (ROZEREM) PO PRN ×2 (02:16→23:38)
[2021-09-11] MEDS: NS 1,000 ML IV SCH (05:48)
[2021-09-11] MEDS: OXAZEPAM 15 MG CAP PO SCH ×3 (05:48→23:38)
[2021-09-11] MEDS: CEPHALEXIN 250MG CAPSULE PO SCH ×4 (05:48→23:38)
[2021-09-11 06:00] VITALS: BP 146/105
[2021-09-11 06:28] LABS: HEMATOCRIT 40.9 % (36.0-47.0); HEMOGLOBIN 14.1 g/dl (12.0-15.5); MEAN CORPUSCULAR HEMOGLOBIN 34.3 pg (27.0-33.0); MEAN CORPUSCULAR HGB CONC 34.5 g/dl (32.0-36.5); MEAN CORPUSCULAR VOLUME 99.5 fl (80.0-96.0); RED BLOOD COUNT 4.11 10^6/uL (4.00-5.40); WHITE BLOOD COUNT 2.8 10^3/uL (4.0-10.0)
[2021-09-11 06:45] LABS: PLATELET COUNT, AUTOMATED 69 10^3/uL (150-450)
[2021-09-11 07:15] LABS: ALBUMIN 3.3 GM/DL (3.2-5.2); ALT/SGPT 84 U/L (12-78); BILIRUBIN,TOTAL 1.2 MG/DL (0.2-1.0); BLOOD UREA NITROGEN 5 MG/DL (7-18); CALCIUM LEVEL 8.6 MG/DL (8.5-10.1); CARBON DIOXIDE LEVEL 20 MEQ/L (21-32); CHLORIDE LEVEL 106 MEQ/L (98-107); CREATININE FOR GFR 0.68 MG/DL (0.55-1.30); GLOMERULAR FILTRATION RATE > 60.0 (>60); GLUCOSE, FASTING 86 MG/DL (70-100); MAGNESIUM LEVEL 1.7 MG/DL (1.8-2.4); PHOSPHORUS LEVEL 2.1 MG/DL (2.5-4.9); POTASSIUM SERUM 3.5 MEQ/L (3.5-5.1); SODIUM LEVEL 139 MEQ/L (136-145); TOTAL PROTEIN 7.5 GM/DL (6.4-8.2)
[2021-09-11] MEDS: THIAMINE 100 MG TAB PO SCH (08:41)
[2021-09-11] MEDS: FONDAPARINUX SODIUM 2.5 MG/0.5 ML SYR (J1652 PER 0.5MG) SC SCH (08:42)
[2021-09-11] MEDS ORDERED: MULTIVITAMINS/MINERALS THERAP 1 TAB PO SCH (09:00)
[2021-09-11] MEDS ORDERED: FOLIC ACID 1 MG TAB PO SCH (09:00)
[2021-09-11 14:00] VITALS: BP 145/90
[2021-09-11] MEDS ORDERED: MAGNESIUM OXIDE 400MG TAB (MAG-OX) PO ONE (14:00)
[2021-09-11] MEDS ORDERED: POTASSIUM CHLORIDE 10MEQ SR TABLET PO ONE (14:00)
[2021-09-11] MEDS ORDERED: K-PHOS ORIGINAL (POT.ACID PHOSPHATE) 500MG TAB PO ONE (15:00)
[2021-09-11 22:00] VITALS: BP 146/100
[2021-09-11] MEDS ORDERED: LOPERAMIDE 2 MG CAPLET PO PRN (22:00)
[2021-09-12] MEDS: CEPHALEXIN 250MG CAPSULE PO SCH ×2 (05:44→11:20)
[2021-09-12 05:47] VITALS: BP 142/100
[2021-09-12 06:01] VITALS: BP 142/100
[2021-09-12 06:48] LABS: HEMATOCRIT 40.6 % (36.0-47.0); HEMOGLOBIN 13.7 g/dl (12.0-15.5); MEAN CORPUSCULAR HEMOGLOBIN 34.2 pg (27.0-33.0); MEAN CORPUSCULAR HGB CONC 33.7 g/dl (32.0-36.5); MEAN CORPUSCULAR VOLUME 101.2 fl (80.0-96.0); RED BLOOD COUNT 4.01 10^6/uL (4.00-5.40); WHITE BLOOD COUNT 2.7 10^3/uL (4.0-10.0)
[2021-09-12 06:50] LABS: PLATELET COUNT, AUTOMATED 71 10^3/uL (150-450)
[2021-09-12 07:05] LABS: ALBUMIN 3.7 GM/DL (3.2-5.2); ALT/SGPT 74 U/L (12-78); BLOOD UREA NITROGEN 3 MG/DL (7-18); CALCIUM LEVEL 9.4 MG/DL (8.5-10.1); CARBON DIOXIDE LEVEL 27 MEQ/L (21-32); CHLORIDE LEVEL 102 MEQ/L (98-107); CREATININE FOR GFR 0.63 MG/DL (0.55-1.30); GLOMERULAR FILTRATION RATE > 60.0 (>60); GLUCOSE, FASTING 99 MG/DL (70-100); MAGNESIUM LEVEL 1.7 MG/DL (1.8-2.4); PHOSPHORUS LEVEL 2.9 MG/DL (2.5-4.9); POTASSIUM SERUM 3.6 MEQ/L (3.5-5.1); SODIUM LEVEL 138 MEQ/L (136-145)
[2021-09-12] MEDS: FONDAPARINUX SODIUM 2.5 MG/0.5 ML SYR (J1652 PER 0.5MG) SC SCH (08:20)
[2021-09-12] MEDS ORDERED: CEFD300C41 PO (10:40)
[2021-09-12] MEDS ORDERED: OXAZ15CA4 PO (10:40)
[2021-09-12] MEDS: OXAZEPAM 15 MG CAP PO SCH (11:21)
== END 2021-09-12 12:07 | disposition home or self-care (01) | DRG 898 ==
LOC: M ED 11:04 → M ED INP 14:16 → M MSPAV 22:24
PROVIDERS: ADMIT Internal Medicine; ATTEND Internal Medicine
DX: F10.132 Alcohol abuse with withdrawal with perceptual disturbance (principal); N39.0 Urinary tract infection, site not specified; R74.01 Elevation of levels of liver transaminase levels; K76.0 Fatty (change of) liver, not elsewhere classified; Z20.822 Contact with and (suspected) exposure to COVID-19; Z79.899 Other long term (current) drug therapy; Z88.1 Allergy status to other antibiotic agents; Z88.2 Allergy status to sulfonamides; D72.819 Decreased white blood cell count, unspecified; D69.6 Thrombocytopenia, unspecified

== ENCOUNTER 2021-10-14 16:49 | Emergency (ER) | payer OTHER ==
[~2021-10-14] VITALS: Ht 160 cm; Wt 61.3 kg
[~2021-10-14 16:49] MED LIST changes: +CEFD1CAP8 PO; +MAGN400C PO; +MELA2.5C4 PO; +SKULLCAP PO
[2021-10-14] MEDS ORDERED: LORazepam 2 MG/ML VIAL IV STA (17:42)
[2021-10-14] MEDS ORDERED: ONDANSETRON 4MG/2ML VIAL IV ONE (17:45)
[2021-10-14] MEDS ORDERED: NS 1,000 ML IV ONE (17:45)
[2021-10-14 18:22] LABS: HEMATOCRIT 40.5 % (36.0-47.0); HEMOGLOBIN 13.8 g/dl (12.0-15.5); MEAN CORPUSCULAR HEMOGLOBIN 33.9 pg (27.0-33.0); MEAN CORPUSCULAR HGB CONC 34.1 g/dl (32.0-36.5); MEAN CORPUSCULAR VOLUME 99.5 fl (80.0-96.0); PLATELET COUNT, AUTOMATED 111 10^3/uL (150-450); RED BLOOD COUNT 4.07 10^6/uL (4.00-5.40); WHITE BLOOD COUNT 1.5 10^3/uL (4.0-10.0)
[2021-10-14 19:00] LABS: ACETAMINOPHEN LEVEL < 2.0 UG/ML (10.0-30.0); ALBUMIN 4.2 GM/DL (3.2-5.2); ALT/SGPT 140 U/L (12-78); BILIRUBIN,DIRECT 0.6 MG/DL (0.0-0.2); BILIRUBIN,TOTAL 0.8 MG/DL (0.2-1.0); BLOOD UREA NITROGEN 5 MG/DL (7-18); CALCIUM LEVEL 8.8 MG/DL (8.5-10.1); CARBON DIOXIDE LEVEL 23 MEQ/L (21-32); CHLORIDE LEVEL 93 MEQ/L (98-107); CREATININE FOR GFR 0.64 MG/DL (0.55-1.30); ETHYL ALCOHOL (ETHANOL) 0.354 % (0.000-0.010); GLOMERULAR FILTRATION RATE > 60.0 (>60); GLUCOSE, FASTING 82 MG/DL (70-100); POTASSIUM SERUM 4.1 MEQ/L (3.5-5.1); SALICYLATE LEVEL < 1.7 MG/DL (5.0-30.0); SODIUM LEVEL 135 MEQ/L (136-145); TOTAL PROTEIN 8.2 GM/DL (6.4-8.2)
[2021-10-14 19:09] LABS: HCG, SERUM QUALITATIVE NEGATIVE (NEGATIVE)
[2021-10-14 20:03] LABS: AMPHETAMINES LEVEL URINE NEGATIVE (NEGATIVE); BARBITURATES URINE NEGATIVE (NEGATIVE); BENZODIAZEPINES URINE NEGATIVE (NEGATIVE); CANNABINOIDS URINE NEGATIVE (NEGATIVE); COCAINE METABOLITE URINE NEGATIVE (NEGATIVE); METHADONE URINE NEGATIVE (NEGATIVE); OPIATES URINE NEGATIVE (NEGATIVE); PHENCYCLIDINE URINE NEGATIVE (NEGATIVE)
[2021-10-14] MEDS ORDERED: OXAZEPAM 15 MG CAP PO ONE ×2 (20:30→22:15)
[2021-10-14 21:30] VITALS: BP 126/83
[2021-10-14] MEDS ORDERED: OXAZ15CA4 PO (22:06)
--- NOTE | 2021-10-15 15:55 | ECGEPIP ---
[facility] [place] - ED Test Date: 2021-10-14 Pat Name: JORDANA UNDERWOOD Department: Room: - Gender: Female [employer]or Of [employer]: RONNIJOSE : 1985 Requested By: DANIELA TERAN Order Number: [id number] Reading MD: Karina Newell Measurements Intervals [place] Rate: 86 P: 58 VT: 148 QRS: 53 QRSD: 76 T: 36 QT: 378 QTc: 452 Interpretive Statements Normal sinus rhythm Septal infarct , age undetermined NSTTW abnormalities decreased rate 09/10/21 Electronically Signed on 10-15-2021 15:55:44 EST by Karina Newell
== END 2021-10-14 22:25 | disposition home or self-care (01) ==
LOC: M ED 16:49
DX: F10.139 Alcohol abuse with withdrawal, unspecified (principal); Y90.1 Blood alcohol level of 20-39 mg/100 ml; I10 Essential (primary) hypertension; F90.9 Attention-deficit hyperactivity disorder, unspecified type; Z88.1 Allergy status to other antibiotic agents; Z88.2 Allergy status to sulfonamides; Z79.899 Other long term (current) drug therapy
CPT/HCPCS: 80048; 80076; 80143; 80307; 82077; 83690; 84443; 84703; 85027; 93005; 93041; 94760; 96361; 96374; 96375; 99285; J2060; J2405

== ENCOUNTER 2021-11-29 15:32 | Emergency (ER) | payer OTHER ==
[~2021-11-29] VITALS: Ht 160 cm; Wt 63.0 kg
[~2021-11-29 15:32] MED LIST changes: -CEFD1CAP8 PO; +CEFD300C41 PO
[2021-11-29] MEDS ORDERED: OXAZEPAM 15 MG CAP PO ONE (16:10)
[2021-11-29 16:42] LABS: HEMATOCRIT 37.2 % (36.0-47.0); HEMOGLOBIN 12.9 g/dl (12.0-15.5); MEAN CORPUSCULAR HEMOGLOBIN 33.6 pg (27.0-33.0); MEAN CORPUSCULAR HGB CONC 34.7 g/dl (32.0-36.5); MEAN CORPUSCULAR VOLUME 96.9 fl (80.0-96.0); RED BLOOD COUNT 3.84 10^6/uL (4.00-5.40); WHITE BLOOD COUNT 2.8 10^3/uL (4.0-10.0)
[2021-11-29 16:45] LABS: PLATELET COUNT, AUTOMATED 91 10^3/uL (150-450)
[2021-11-29 16:52] LABS: INR 0.9; PROTHROMBIN TIME 12.5 SECONDS (12.7-14.5)
[2021-11-29 17:07] LABS: ALBUMIN 4.6 GM/DL (3.2-5.2); ALT/SGPT 60 U/L (12-78); BILIRUBIN,DIRECT 0.6 MG/DL (0.0-0.2); BILIRUBIN,TOTAL 1.6 MG/DL (0.2-1.0); BLOOD UREA NITROGEN 4 MG/DL (7-18); CALCIUM LEVEL 10.1 MG/DL (8.5-10.1); CARBON DIOXIDE LEVEL 24 MEQ/L (21-32); CHLORIDE LEVEL 92 MEQ/L (98-107); CREATININE FOR GFR 0.69 MG/DL (0.55-1.30); ETHYL ALCOHOL (ETHANOL) 0.103 % (0.000-0.010); GLOMERULAR FILTRATION RATE > 60.0 (>60); GLUCOSE, FASTING 97 MG/DL (70-100); LIPASE 135 U/L (73-393); MAGNESIUM LEVEL 1.6 MG/DL (1.8-2.4); POTASSIUM SERUM 4.1 MEQ/L (3.5-5.1); SODIUM LEVEL 134 MEQ/L (136-145); TOTAL PROTEIN 8.6 GM/DL (6.4-8.2)
[2021-11-29 17:38] LABS: RSV AMPLIFICATION NEGATIVE (NEGATIVE)
[2021-11-29] MEDS ORDERED: MAGN400C PO (18:38)
[2021-11-29 18:45] VITALS: BP 137/93
[2021-11-30] MEDS ORDERED: POTA595T16 PO (11:59)
[2021-11-30] MEDS ORDERED: FERR325T81 PO (11:59)
[2021-11-30] MEDS ORDERED: MAGN400T2 PO (11:59)
[2021-11-30] MEDS ORDERED: VITA1TAB61 PO (11:59)
[2021-11-30] MEDS ORDERED: CULT10CA4 PO (11:59)
[2021-11-30] MEDS ORDERED: FOLI800T3 PO (11:59)
[2021-11-30] MEDS ORDERED: AZO1CHW PO (11:59)
== END 2021-11-29 19:26 | disposition home or self-care (01) ==
LOC: M ED 15:32
DX: F10.230 Alcohol dependence with withdrawal, uncomplicated (principal); Y90.0 Blood alcohol level of less than 20 mg/100 ml; U07.1 COVID-19; E83.42 Hypomagnesemia; D72.819 Decreased white blood cell count, unspecified; D69.6 Thrombocytopenia, unspecified; K76.0 Fatty (change of) liver, not elsewhere classified; Z88.1 Allergy status to other antibiotic agents; Z88.2 Allergy status to sulfonamides; Z79.899 Other long term (current) drug therapy

== ENCOUNTER 2021-11-30 08:55 | Inpatient (IN) | payer OTHER ==
[~2021-11-30] VITALS: Ht 160 cm; Wt 63.5 kg
[2021-11-30] MEDS ORDERED: LORazepam 2 MG/ML VIAL IV STA (09:10)
[2021-11-30] MEDS ORDERED: MULTIVITAMIN -ADULT INJECTION 10 ML, THIAMINE INJection 100 MG, FOLIC ACID 1 MG in NS 1... IV ONE (09:15)
[2021-11-30] MEDS ORDERED: ONDANSETRON 4MG/2ML VIAL IV ONE (09:15)
[2021-11-30 09:49] LABS: BASO % 0.7 % (0.0-1.0); HEMATOCRIT 33.8 % (36.0-47.0); HEMOGLOBIN 11.8 g/dl (12.0-15.5); LYMPH # 0.4 10^3/uL (1.5-5.0); MEAN CORPUSCULAR HEMOGLOBIN 34.1 pg (27.0-33.0); MEAN CORPUSCULAR HGB CONC 34.9 g/dl (32.0-36.5); MEAN CORPUSCULAR VOLUME 97.7 fl (80.0-96.0); MONO # 0.3 10^3/uL (0.0-0.8); MONO % 18.5 % (2.0-8.0); NEUTROPHILS % 54.8 % (36.0-66.0); RED BLOOD COUNT 3.46 10^6/uL (4.00-5.40); WHITE BLOOD COUNT 1.5 10^3/uL (4.0-10.0)
[2021-11-30 10:18] LABS: ACETAMINOPHEN LEVEL < 2.0 UG/ML (10.0-30.0); ALBUMIN 3.9 GM/DL (3.2-5.2); ALT/SGPT 47 U/L (12-78); BILIRUBIN,DIRECT 0.6 MG/DL (0.0-0.2); BILIRUBIN,TOTAL 2.1 MG/DL (0.2-1.0); BLOOD UREA NITROGEN 4 MG/DL (7-18); CALCIUM LEVEL 9.2 MG/DL (8.5-10.1); CARBON DIOXIDE LEVEL 28 MEQ/L (21-32); CHLORIDE LEVEL 95 MEQ/L (98-107); CREATININE FOR GFR 0.65 MG/DL (0.55-1.30); ETHYL ALCOHOL (ETHANOL) < 0.003 % (0.000-0.010); GLOMERULAR FILTRATION RATE > 60.0 (>60); GLUCOSE, FASTING 100 MG/DL (70-100); MAGNESIUM LEVEL 1.7 MG/DL (1.8-2.4); NEUTROPHILS # 0.8 10^3/uL (1.5-8.5); PLATELET COUNT, AUTOMATED 76 10^3/uL (150-450); POTASSIUM SERUM 3.9 MEQ/L (3.5-5.1); SALICYLATE LEVEL < 1.7 MG/DL (5.0-30.0); SODIUM LEVEL 137 MEQ/L (136-145); TOTAL PROTEIN 7.7 GM/DL (6.4-8.2)
[2021-11-30 10:26] LABS: OSMOLALITY SERUM 280 MOSM/KG (275-295)
[2021-11-30] MEDS ORDERED: FERR325T81 PO (11:59)
[2021-11-30] MEDS ORDERED: AZO1CHW PO (11:59)
[2021-11-30] MEDS ORDERED: CULT10CA4 PO (11:59)
[2021-11-30] MEDS ORDERED: VITA1TAB61 PO (11:59)
[2021-11-30] MEDS ORDERED: POTA595T16 PO (11:59)
[2021-11-30] MEDS ORDERED: MAGN400T2 PO (11:59)
[2021-11-30] MEDS ORDERED: FOLI800T3 PO (11:59)
[2021-11-30] MEDS ORDERED: HOME MED LIST COMPLETE! XX SCH (12:05)
[2021-11-30] MEDS: THIAMINE 100 MG TAB PO SCH ×2 (13:18→19:38)
[2021-11-30] MEDS: ENOXAPARIN 40MG/0.4ML SYRINGE (J1650 PER 10MG) SC SCH (13:19)
[2021-11-30] MEDS: OLANZapine 5 MG TAB PO SCH ×3 (13:19→23:29)
[2021-11-30] MEDS: LORazepam 2 MG TAB PO PRN (13:43)
[2021-11-30 14:00] VITALS: BP 139/91
[2021-11-30] MEDS ORDERED: REMDESIVIR 200 MG in NS 250 ML IV ONE (15:00)
[2021-11-30] MEDS ORDERED: SODIUM CHLORIDE 0.9% INJ 10 ML SYR IV ONE (16:00)
[2021-11-30 19:37] VITALS: BP 123/82
[2021-11-30 20:00] VITALS: BP 123/82
[2021-11-30 21:24] VITALS: BP 118/75
[2021-12-01] VITALS (10 sets, daily range): BP systolic 122–159; BP diastolic 82–98
[2021-12-01] MEDS: LORazepam 2 MG TAB PO PRN ×4 (02:41→22:31)
[2021-12-01] MEDS: OLANZapine 5 MG TAB PO SCH (06:02)
[2021-12-01] MEDS: MULTIVITAMINS/MINERALS THERAP 1 TAB PO SCH (08:06)
[2021-12-01] MEDS: THIAMINE 100 MG TAB PO SCH ×2 (08:13→20:03)
[2021-12-01] MEDS: FOLIC ACID 1 MG TAB PO SCH (08:13)
[2021-12-01 08:28] LABS: BASO % 0.3 % (0.0-1.0); EOS # 0.1 10^3/uL (0.0-0.5); EOS % 2.2 % (0.0-3.0); HEMOGLOBIN 11.5 g/dl (12.0-15.5); LYMPH # 1.9 10^3/uL (1.5-5.0); LYMPH % 57.6 % (24.0-44.0); MEAN CORPUSCULAR HEMOGLOBIN 34.3 pg (27.0-33.0); MEAN CORPUSCULAR HGB CONC 33.8 g/dl (32.0-36.5); MEAN CORPUSCULAR VOLUME 101.5 fl (80.0-96.0); MONO # 0.4 10^3/uL (0.0-0.8); MONO % 11.5 % (2.0-8.0); NEUTROPHILS % 28.1 % (36.0-66.0); RED BLOOD COUNT 3.35 10^6/uL (4.00-5.40); WHITE BLOOD COUNT 3.2 10^3/uL (4.0-10.0)
[2021-12-01 08:44] LABS: ALBUMIN 4.3 GM/DL (3.2-5.2); ALT/SGPT 43 U/L (12-78); BILIRUBIN,DIRECT 0.5 MG/DL (0.0-0.2); BILIRUBIN,TOTAL 1.7 MG/DL (0.2-1.0); BLOOD UREA NITROGEN 4 MG/DL (7-18); CALCIUM LEVEL 9.6 MG/DL (8.5-10.1); CARBON DIOXIDE LEVEL 22 MEQ/L (21-32); CHLORIDE LEVEL 102 MEQ/L (98-107); CREATININE FOR GFR 0.67 MG/DL (0.55-1.30); GLOMERULAR FILTRATION RATE > 60.0 (>60); GLUCOSE, FASTING 105 MG/DL (70-100); MAGNESIUM LEVEL 1.7 MG/DL (1.8-2.4); PHOSPHORUS LEVEL 2.7 MG/DL (2.5-4.9); POTASSIUM SERUM 3.3 MEQ/L (3.5-5.1); SODIUM LEVEL 140 MEQ/L (136-145); TOTAL PROTEIN 7.9 GM/DL (6.4-8.2)
[2021-12-01 08:51] LABS: NEUTROPHILS # 0.9 10^3/uL (1.5-8.5); PLATELET COUNT, AUTOMATED 74 10^3/uL (150-450)
[2021-12-01] MEDS: ENOXAPARIN 40MG/0.4ML SYRINGE (J1650 PER 10MG) SC SCH (09:00)
[2021-12-01] MEDS ORDERED: OXAZEPAM 15 MG CAP PO ONE (09:30)
[2021-12-01] MEDS ORDERED: OLANZapine 5 MG TAB PO SCH (12:00)
[2021-12-01] MEDS ORDERED: LORazepam 2 MG/ML VIAL IV STA (12:24)
[2021-12-01] MEDS: OXAZEPAM 15 MG CAP PO ONE ×3 (13:00→15:31)
[2021-12-01] MEDS: REMDESIVIR 100 MG in NS 250 ML IV SCH (15:30)
[2021-12-01] MEDS: SODIUM CHLORIDE 0.9% INJ 10 ML SYR IV SCH (16:00)
[2021-12-01] MEDS: KCL 10MEQ/100ML SWI (KRUN) 10 MEQ in IV 1 EA IV SCH ×3 (16:53→18:43)
[2021-12-01] MEDS: OXAZEPAM 15 MG CAP PO SCH ×2 (18:42→23:06)
[2021-12-02] VITALS (7 sets, daily range): BP systolic 113–154; BP diastolic 76–96
[2021-12-02] MEDS: OXAZEPAM 15 MG CAP PO SCH ×2 (05:39→18:15)
[2021-12-02 06:31] LABS: HEMATOCRIT 33.8 % (36.0-47.0); HEMOGLOBIN 11.6 g/dl (12.0-15.5); MEAN CORPUSCULAR HEMOGLOBIN 34.8 pg (27.0-33.0); MEAN CORPUSCULAR HGB CONC 34.3 g/dl (32.0-36.5); MEAN CORPUSCULAR VOLUME 101.5 fl (80.0-96.0); RED BLOOD COUNT 3.33 10^6/uL (4.00-5.40); WHITE BLOOD COUNT 5.3 10^3/uL (4.0-10.0)
[2021-12-02 06:36] LABS: PLATELET COUNT, AUTOMATED 71 10^3/uL (150-450)
[2021-12-02 06:52] LABS: BLOOD UREA NITROGEN 4 MG/DL (7-18); CALCIUM LEVEL 9.2 MG/DL (8.5-10.1); CARBON DIOXIDE LEVEL 26 MEQ/L (21-32); CHLORIDE LEVEL 98 MEQ/L (98-107); CREATININE FOR GFR 0.57 MG/DL (0.55-1.30); GLOMERULAR FILTRATION RATE > 60.0 (>60); GLUCOSE, FASTING 99 MG/DL (70-100); MAGNESIUM LEVEL 1.6 MG/DL (1.8-2.4); POTASSIUM SERUM 3.2 MEQ/L (3.5-5.1); SODIUM LEVEL 136 MEQ/L (136-145)
[2021-12-02] MEDS: MULTIVITAMINS/MINERALS THERAP 1 TAB PO SCH (08:02)
[2021-12-02] MEDS: POTASSIUM CHLORIDE 10MEQ SR TABLET PO SCH ×2 (08:02→11:16)
[2021-12-02] MEDS: FOLIC ACID 1 MG TAB PO SCH (08:02)
[2021-12-02] MEDS: THIAMINE 100 MG TAB PO SCH ×2 (08:02→20:56)
[2021-12-02] MEDS: ENOXAPARIN 40MG/0.4ML SYRINGE (J1650 PER 10MG) SC SCH (08:22)
[2021-12-02] MEDS ORDERED: MAGNESIUM OXIDE 400MG TAB (MAG-OX) PO ONE (09:00)
[2021-12-02] MEDS: REMDESIVIR 100 MG in NS 250 ML IV SCH (14:44)
[2021-12-02] MEDS: SODIUM CHLORIDE 0.9% INJ 10 ML SYR IV SCH (16:02)
[2021-12-03 02:00] VITALS: BP 122/75
[2021-12-03 05:15] VITALS: BP 132/88
[2021-12-03] MEDS: OXAZEPAM 15 MG CAP PO SCH (05:51)
[2021-12-03 07:02] LABS: BASO % 0.6 % (0.0-1.0); EOS # 0.1 10^3/uL (0.0-0.5); EOS % 3.8 % (0.0-3.0); HEMATOCRIT 33.6 % (36.0-47.0); HEMOGLOBIN 11.3 g/dl (12.0-15.5); LYMPH % 28.5 % (24.0-44.0); MEAN CORPUSCULAR HEMOGLOBIN 34.6 pg (27.0-33.0); MEAN CORPUSCULAR HGB CONC 33.6 g/dl (32.0-36.5); MEAN CORPUSCULAR VOLUME 102.8 fl (80.0-96.0); MONO # 0.5 10^3/uL (0.0-0.8); MONO % 14.5 % (2.0-8.0); NEUTROPHILS # 1.8 10^3/uL (1.5-8.5); NEUTROPHILS % 52.6 % (36.0-66.0); RED BLOOD COUNT 3.27 10^6/uL (4.00-5.40); WHITE BLOOD COUNT 3.4 10^3/uL (4.0-10.0)
[2021-12-03 07:03] LABS: PLATELET COUNT, AUTOMATED 94 10^3/uL (150-450)
[2021-12-03 07:21] LABS: MAGNESIUM LEVEL 1.9 MG/DL (1.8-2.4); PHOSPHORUS LEVEL 4.3 MG/DL (2.5-4.9)
[2021-12-03 08:00] VITALS: BP 128/81
[2021-12-03] MEDS: ENOXAPARIN 40MG/0.4ML SYRINGE (J1650 PER 10MG) SC SCH (08:12)
[2021-12-03] MEDS: FOLIC ACID 1 MG TAB PO SCH (08:12)
[2021-12-03] MEDS: MULTIVITAMINS/MINERALS THERAP 1 TAB PO SCH (08:12)
[2021-12-03 08:18] VITALS: BP 128/81
[2021-12-03 09:02] LABS: BLOOD UREA NITROGEN 9 MG/DL (7-18); CALCIUM LEVEL 9.3 MG/DL (8.5-10.1); CARBON DIOXIDE LEVEL 25 MEQ/L (21-32); CHLORIDE LEVEL 107 MEQ/L (98-107); CREATININE FOR GFR 0.53 MG/DL (0.55-1.30); GLOMERULAR FILTRATION RATE > 60.0 (>60); GLUCOSE, FASTING 96 MG/DL (70-100); POTASSIUM SERUM 4.1 MEQ/L (3.5-5.1); SODIUM LEVEL 141 MEQ/L (136-145)
[2021-12-04 11:46] LABS: FOLATE > 24.0 NG/ML (>5.4); VITAMIN B12 LEVEL 994 PG/ML (247-911)
== END 2021-12-03 11:28 | disposition home or self-care (01) | DRG 896 ==
LOC: M ED 08:55 → EDBD 08:55 → M ED INP 11:39 → ENRESERV 12:17 → M 4MAIN 12:57
PROVIDERS: ADMIT Internal Medicine; ATTEND Internal Medicine
PROC: XW033E5 Introduction of Remdesivir Anti-infective into Peripheral Vein, Percutaneous Approach, New Technology Group 5 (ICD-10-PCS; principal; 2021-11-30)
DX: F10.139 Alcohol abuse with withdrawal, unspecified (principal); U07.1 COVID-19; D69.6 Thrombocytopenia, unspecified; E83.42 Hypomagnesemia; K76.0 Fatty (change of) liver, not elsewhere classified; Z79.899 Other long term (current) drug therapy; Z88.1 Allergy status to other antibiotic agents; Z88.2 Allergy status to sulfonamides; D53.9 Nutritional anemia, unspecified